=== PATIENT | female | born 1930 | race Caucasian/White ===

== ENCOUNTER → 2016-04-15 | Outpatient (CLI) | payer OTHER ==
[~2016-04-15] MED LIST: BNC20 PO
--- NOTE | 2016-04-15 09:57 | DIAGNOSTIC IMAGING REPORT ---
THYROID ULTRASOUND CLINICAL HISTORY: Thyroid nodule. COMPARISON STUDY: Thyroid ultrasound September 21, 2015. TECHNIQUE: Sonography of the thyroid gland was performed. FINDINGS: The right thyroid lobe measures 5.6 x 2 x 2.1 cm and the left lobe measures 4.7 x 1.7 x 1.4 cm. Note is made of an echogenic nodule within the lower pole of the right lobe that measures 2.5 x 1.5 x 1.7 cm. This is similar to exam of September 21, 2015 when it measured 2.6 x 1.4 x 1.8 cm. A few subcentimeter hypoechoic left lobe nodules are unchanged. The appearance of the thyroid gland is unchanged. IMPRESSION: No change in the dominant right lobe thyroid nodule since exam of September 21, 2015. Electronically signed by: Florentin Modi M.D. 04/15/2016 9:55 AM Dictated Date/Time: 04/15/2016 9:54 AM
== END | disposition home or self-care (01) ==
LOC: C.ULTR 09:21
PROVIDERS: ATTEND Internal Medicine Pulmonary Disease
DX: E04.1 Nontoxic single thyroid nodule (principal)

== ENCOUNTER → 2016-11-15 | Outpatient (CLI) | payer OTHER ==
[2016-11-15 12:27] LABS: BASO ABS # 0.06 K/uL (0-0.2); COMPLETE YES; EOS % 3.3 %; HEMATOCRIT 40.5 % (37-47); IG% 0.2 %; LYMPH % 32.3 %; LYMPH ABS # 1.85 K/uL (1.2-3.4); MEAN CELL VOLUME 88.6 fL (80-100); MEAN CORPUSCULAR HEMOGLOBIN 29.3 pg (25-34); MEAN CORPUSCULAR HGB CONC 33.1 g/dl (32-36); MONO % 9.9 %; NEUT % 53.3 %; PLATELET COUNT 347 K/uL (130-400); RED BLOOD COUNT 4.57 M/uL (4.2-5.4); WHITE BLOOD COUNT 5.73 K/uL (4.8-10.8)
[2016-11-15 12:41] LABS: URINE APPEARANCE CLEAR (CLEAR); URINE BILIRUBIN NEG (NEG); URINE COLOR YELLOW; URINE NITRITE NEG (NEG); URINE PH 7.5 (4.5-7.5); URINE SPECIFIC GRAVITY 1.012 (1.000-1.030); UROBILINOGEN NEG (NEG)
[2016-11-15 12:43] LABS: MANUAL MICROSCOPIC REQUIRED? NO; REVIEW REQ? NO
[2016-11-15 13:20] LABS: ALT/SGPT 16 U/L (12-78); AST/SGOT 19 U/L (15-37); BLOOD UREA NITROGEN 15 mg/dl (7-18); BUN/CREATININE RATIO 17.9 (10-20); CARBON DIOXIDE 28 mmol/L (21-32); CHLORIDE 103 mmol/L (98-107); CHOLESTEROL 217 mg/dl (0-200); CREATININE 0.83 mg/dl (0.60-1.20); GLUCOSE 88 mg/dl (70-99); POTASSIUM 3.8 mmol/L (3.5-5.1); SODIUM 139 mmol/L (136-145)
[2016-11-15 13:31] LABS: ALKALINE PHOSPHATASE 106 U/L (45-117); CHOLESTEROL/HDL RATIO 2.6; HDL CHOLESTEROL 84 mg/dl; LDL CHOLESTEROL CALCULATED 117 mg/dl; TRIGLYCERIDES 79 mg/dl (0-150); VERY LOW DENSITY LIPOPROT CALC 16 mg/dl
== END | disposition home or self-care (01) ==
LOC: C.LABPVFM 08:04
PROVIDERS: ATTEND Internal Medicine Pulmonary Disease
DX: E78.5 Hyperlipidemia, unspecified (principal); I10 Essential (primary) hypertension

== ENCOUNTER 2017-03-12 11:20 | Emergency (ER) | payer BC, MEDICARE, OTHER ==
[~2017-03-12] VITALS: Ht 190.5 cm; Wt 74.7 kg
[2017-03-12 11:22] VITALS: TEMP 37; Ht 190.5 cm; Wt 74.7 kg
[2017-03-12] MEDS ORDERED: SODIUM CHLORIDE 0.9% 1000ML 1,000 ML IV STA (11:49)
[2017-03-12] MEDS ORDERED: KETOROLAC TROMETHAMINE 30 MG/ML VIAL IV STA (11:49)
[2017-03-12] MEDS ORDERED: ONDANSETRON INJ 2 MG/ML 2 ML VIAL IV STA (11:49)
[2017-03-12 12:17] LABS: BASO % 0.3 %; BASO ABS # 0.03 K/uL (0-0.2); EOS % 0.7 %; EOS ABS # 0.08 K/uL (0-0.5); HEMATOCRIT 39.4 % (37-47); HEMOGLOBIN 13.3 g/dL (12.0-16.0); IG# 0.03 K/uL (0.00-0.02); LYMPH % 11.5 %; LYMPH ABS # 1.29 K/uL (1.2-3.4); MEAN CELL VOLUME 88.5 fL (80-100); MEAN CORPUSCULAR HEMOGLOBIN 29.9 pg (25-34); MEAN CORPUSCULAR HGB CONC 33.8 g/dl (32-36); MEAN PLATELET VOLUME 8.8 fL (7.4-10.4); MONO % 8.4 %; MONO ABS # 0.94 K/uL (0.11-0.59); NEUT % 78.8 %; NEUT ABS # 8.88 K/uL (1.4-6.5); PLATELET COUNT 330 K/uL (130-400); RED CELL DISTRIBUTION WIDTH CV 13.1 % (11.5-14.5); RED CELL DISTRIBUTION WIDTH SD 42.5 fL (36.4-46.3); WHITE BLOOD COUNT 11.25 K/uL (4.8-10.8)
[2017-03-12 12:25] LABS: ALBUMIN 3.6 gm/dl (3.4-5.0); CALCIUM 8.7 mg/dl (8.5-10.1); CREATININE 0.91 mg/dl (0.60-1.20); POTASSIUM 3.5 mmol/L (3.5-5.1)
[2017-03-12 12:27] LABS: TOTAL PROTEIN 7.4 gm/dl (6.4-8.2)
--- NOTE | 2017-03-12 12:27 | DIAGNOSTIC IMAGING REPORT ---
PA CHEST RADIOGRAPH AND UPRIGHT AND SUPINE AP RADIOGRAPHS OF THE ABDOMEN CLINICAL HISTORY: Abdominal pain. COMPARISON STUDY: CT of the abdomen and pelvis May 27, 2011 and chest radiograph September 02, 2014. FINDINGS: No pneumothorax or pleural effusion is noted. There is no evidence for pulmonary edema. Cardiomediastinal silhouette is stable. No consolidation is identified to suggest pneumonia. There is no free air. The bowel gas pattern is normal. There is a moderate amount of stool within the colon and rectum. Incidental note is made of mild levoscoliosis of the lumbar spine. IMPRESSION: 1. No free air or evidence of bowel obstruction. 2. Moderate amount of stool within the colon and rectum. 3. No acute cardiopulmonary findings. Electronically signed by: Florentin Modi M.D. 03/12/2017 12:25 PM Dictated Date/Time: 03/12/2017 12:20 PM
[2017-03-12 12:31] LABS: PTT PATIENT 26.6 SECONDS (21.0-31.0)
--- NOTE | 2017-03-12 14:09 | EMERGENCY ROOM VISIT NOTE ---
History Report prepared by Giovanni: Bob Mejia Under the Supervision of: Dr. Robert Lehman D.O. First contact with patient: 11:33 Chief Complaint: SYNCOPE Stated Complaint: FALL/ABDOMINAL PAIN/SYNCOPE Nursing Triage Summary: Pt arrives via BLS from her home where she had a ground level fall in the bathroom while attempting to stand up. Pt states she felt dizzy and "felt it coming on" so she "went down" on her right side. Skin tear on right elbow. Pt states she is having "barely any" pain under umbilicus rates 2/10. History of Present Illness The patient is a 86 year old female who presents to the Emergency Room with complaints of syncope that occurred just prior to arrival. The patient state that when she fell, she felt dizzy and denies head strike. She states she had an abdominal cramp that came in waves that lasted for 20 minutes, and states that pain has come back. She denies leg pain, nausea, vomiting, and diarrhea. Her last bowel movement was yesterday. Source of History: patient Onset: CRM ARCHITECT Position: other (global) Timing: other (1 episode of falling) Associated Symptoms: + LOC, + abdominal pain (intermittent waves of pain), No nausea, No vomiting, No diarrhea Review of Systems See HPI for pertinent positives & negatives. A total of 10 systems reviewed and were otherwise negative. Past Medical & Surgical Medical Problems: (1) Hypertension Family History No pertinent family history Social History Smoking Status: Never Smoker Drug Use: none Marital Status: Housing Status: lives with family Current/Historical Medications No Active Prescriptions or Reported Meds Allergies Coded Allergies: No Known Allergies (Unverified , 03/12/17) Physical Exam Vital Signs Date Time Temp Pulse Resp B/P (MAP) Pulse Ox O2 Delivery O2 Flow Rate FiO2 03/12/17 12:26 93 03/12/17 11:22 37.0 95 12 114/82 Room Air Physical Exam CONSTITUTIONAL/VITAL SIGNS: Reviewed / noted above. GENERAL: Non-toxic in appearance. INTEGUMENTARY: Warm, dry, and [place]. HEAD: Normocephalic. EYES: without scleral icterus or trauma. ENT/OROPHARYNX: clear and moist. LYMPHADENOPATHY/NECK: Is supple without lymphadenopathy or meningismus. RESPIRATORY: Lungs clear and equal. CARDIOVASCULAR: Regular rate and rhythm. GI/ABDOMEN: Soft and nontender. No organomegaly or pulsatile mass. No rebound or guarding. Normal bowel sounds. EXTREMITIES: Warm and well perfused. Contusion/abrasion of right lateral elbow. BACK: No CVA tenderness. NEUROLOGICAL: Intact without focal deficits. PSYCHIATRIC: normal affect. MUSCULOSKELETAL: Normally developed with good muscle tone. Medical Decision & Procedures ER Provider Diagnostic Interpretation: Radiology results as stated below per my review and radiologist interpretation: PA CHEST RADIOGRAPH AND UPRIGHT AND SUPINE AP RADIOGRAPHS OF THE ABDOMEN CLINICAL HISTORY: Abdominal pain. COMPARISON STUDY: CT of the abdomen and pelvis May 27, 2011 and chest radiograph September 02, 2014. FINDINGS: No pneumothorax or pleural effusion is noted. There is no evidence for pulmonary edema. Cardiomediastinal silhouette is stable. No consolidation is identified to suggest pneumonia. There is no free air. The bowel gas pattern is normal. There is a moderate amount of stool within the colon and rectum. Incidental note is made of mild levoscoliosis of the lumbar spine. IMPRESSION: 1. No free air or evidence of bowel obstruction. 2. Moderate amount of stool within the colon and rectum. 3. No acute cardiopulmonary findings. Electronically signed by: Florentin Modi M.D. 03/12/2017 12:25 PM Dictated Date/Time: 03/12/2017 12:20 PM Laboratory Results 03/12/17 11:25 Red Blood Count 4.45, Mean Corpuscular Volume 88.5, Mean Corpuscular Hemoglobin 29.9, Mean Corpuscular Hemoglobin Concent 33.8, Mean Platelet Volume 8.8, Neutrophils (%) (Auto) 78.8, Lymphocytes (%) (Auto) 11.5, Monocytes (%) (Auto) 8.4, Eosinophils (%) (Auto) 0.7, Basophils (%) (Auto) 0.3, Neutrophils # (Auto) 8.88, Lymphocytes # (Auto) 1.29, Monocytes # (Auto) 0.94, Eosinophils # (Auto) 0.08, Basophils # (Auto) 0.03 03/12/17 11:25 Test 03/12/17 11:25 03/12/17 13:30 White Blood Count 11.25 K/uL (4.8-10.8) Red Blood Count 4.45 M/uL (4.2-5.4) Hemoglobin 13.3 g/dL (12.0-16.0) Hematocrit 39.4 % (37-47) Mean Corpuscular Volume 88.5 fL (80-100) Mean Corpuscular Hemoglobin 29.9 pg (25-34) Mean Corpuscular Hemoglobin Concent 33.8 g/dl (32-36) Platelet Count 330 K/uL (130-400) Mean Platelet Volume 8.8 fL (7.4-10.4) Neutrophils (%) (Auto) 78.8 % Lymphocytes (%) (Auto) 11.5 % Monocytes (%) (Auto) 8.4 % Eosinophils (%) (Auto) 0.7 % Basophils (%) (Auto) 0.3 % Neutrophils # (Auto) 8.88 K/uL (1.4-6.5) Lymphocytes # (Auto) 1.29 K/uL (1.2-3.4) Monocytes # (Auto) 0.94 K/uL (0.11-0.59) Eosinophils # (Auto) 0.08 K/uL (0-0.5) Basophils # (Auto) 0.03 K/uL (0-0.2) RDW Standard Deviation 42.5 fL (36.4-46.3) RDW Coefficient of Variation 13.1 % (11.5-14.5) Immature Granulocyte % (Auto) 0.3 % Immature Granulocyte # (Auto) 0.03 K/uL (0.00-0.02) Prothrombin Time 10.6 SECONDS (9.0-12.0) Prothromb Time International Ratio 1.0 (0.9-1.1) Activated Partial Thromboplast Time 26.6 SECONDS (21.0-31.0) Partial Thromboplastin Ratio 1.0 Anion Gap 8.0 mmol/L (3-11) Est Creatinine Clear Calc Drug Dose 54.3 ml/min Estimated GFR () 67.1 Estimated GFR (Non- 57.9 BUN/Creatinine Ratio 17.0 (10-20) Calcium Level 8.7 mg/dl (8.5-10.1) Total Bilirubin 0.6 mg/dl (0.2-1) Direct Bilirubin 0.1 mg/dl (0-0.2) Aspartate Amino Transf (AST/SGOT) 33 U/L (15-37) Alanine Aminotransferase (ALT/SGPT) 23 U/L (12-78) Alkaline Phosphatase 107 U/L (45-117) Total Protein 7.4 gm/dl (6.4-8.2) Albumin 3.6 gm/dl (3.4-5.0) Lipase 257 U/L (73-393) Urine Color YELLOW Urine Appearance CLEAR (CLEAR) Urine pH 7.0 (4.5-7.5) Urine Specific [place] 1.008 (1.000-1.030) Urine Protein NEG (NEG) Urine Glucose (UA) NEG (NEG) Urine Ketones NEG (NEG) Urine Occult Blood NEG (NEG) Urine Nitrite NEG (NEG) Urine Bilirubin NEG (NEG) Urine Urobilinogen NEG (NEG) Urine Leukocyte Esterase NEG (NEG) Urine WBC (Auto) 1-5 /hpf (0-5) Urine RBC (Auto) 0-4 /hpf (0-4) Urine Hyaline Casts (Auto) 0 /lpf (0-5) Urine Epithelial Cells (Auto) 20-30 /lpf (0-5) Urine Bacteria (Auto) NEG (NEG) Laboratory results as stated above per my review. Medications Administered Medications (Trade) Dose Ordered Sig/Radu Route Start Time Stop Time Status Last Admin Dose Admin Sodium Chloride 1,000 ml @ 999 mls/hr Q1H1M STAT IV 03/12/17 11:49 03/12/17 12:49 DC 03/12/17 11:49 999 MLS/HR ECG Indication: abdominal pain, syncope Rate (beats per minute): 95 Rhythm: normal sinus Findings: 1st degree AV block, no ectopy, other (No acute injury) Change: Patient's EKG interpreted by me. ED Course 1133: Previous medical records were reviewed. The patient was evaluated in room A3. A complete history and physical examination was performed. 1149: Toradol Inj 30 mg IV, Zofran Inj 4 mg IV, Sodium Chloride 1000 ml @ 999 mls/hr IV. 1409: On reevaluation, the patient is doing well. I discussed the results and findings with the patient. She verbalized agreement of the treatment plan. She was discharged home. Medical Decision Differential includes acute cardiac dysrhythmia, microinfarction, CVA, TIA, dehydration, anemia, electrolyte disturbance, seizure, trauma, intracranial bleeding, acute vascular catastrophe, thoracic aortic dissection, PE, abdominal aortic aneurysm rupture, ectopic rupture. Differential considered: pancreatitis, hepatitis, or acute cholecystitis, AAA, UTI, pyelonephritis, kidney stones, appendicitis, diverticulitis, shingles, bowel obstruction mesenteric ischemia, intussusception,hernia. This is a 86-year-old female who presents to the ED with a chief complaint of syncopal episode. The patient states that she had a severe cramp in her abdomen. This caused her to feel lightheaded and nearly passed out and she states that she went down to the ground and hit her right elbow on the wall. This caused a contusion/abrasion. She denies striking her head. She denies any additional trauma. The patient states that the symptoms resolved after short period time. She was brought here for evaluation. The patient on initial evaluation did not have any symptoms but this pain started returning when she was being evaluated. The patient states she felt like she had to move her bowels. The patient had no tenderness on abdominal exam. She otherwise appears well. Her exam was normal. Acute abdominal series revealed moderate stool in the colon and rectum. CBC, complete metabolic panel and urine did not show any significant abnormalities. The patient was told results of the test per she was treated with some IV Zofran, IV Toradol and IV fentanyl. She was felt to be stable for discharge and outpatient follow-up. Of note, she did have a bowel movement during her stay. She states that she felt better. Medication Reconcilliation Current Medication List: was personally reviewed by me Blood Pressure Screening Patient's blood pressure: Normal blood pressure Blood pressure disposition: Did not require urgent referral Impression Primary Impression: Constipation Additional Impression: Syncope Scribe Attestation The scribe's documentation has been prepared under my direction and personally reviewed by me in its entirety. I confirm that the note above accurately reflects all work, treatment, procedures, and medical decision making performed by me. Departure Information Dispostion Home / Self-Care Prescriptions No Active Prescriptions or Reported Meds Referrals Jorge Interiano M.D. (PCP) Patient Instructions Constipation, My [facility] Additional Instructions Follow-up with your doctor for further care and evaluation in 1-2 days. Return to the emergency department for worsening or new symptoms or any concerns. You have been examined and treated today on an emergency basis only. This is not a substitute for, or an effort to provide, complete comprehensive medical care. It is impossible to recognize and treat all injuries or illnesses in a single emergency department visit. It is therefore important that you follow up closely with your doctor. Call as soon as possible for an appointment. Problem Qualifiers
[2017-03-12 14:23] VITALS: BP 144/80; PULSE 68; O2SAT 98
== END 2017-03-12 14:25 | disposition home or self-care (01) ==
LOC: EDBD 11:20 → C.EDA 11:22
DX: R55 Syncope and collapse (principal); K59.00 Constipation, unspecified; I10 Essential (primary) hypertension; S50.01XA Contusion of right elbow, initial encounter; W19.XXXA Unspecified fall, initial encounter

== ENCOUNTER 2018-04-27 08:33 | Inpatient (IN) ==
--- NOTE | 2018-04-12 18:00 | PAT Medication Instructions ---
Medication Instructions Date of Service April 13, 2018 Home Medications diclofenac sodium 50 mg PO . NOON ASK your surgeon for instructions diclofenac sodium 50 mg PO . NOON Take morning of surgery NOTHING TO EAT OR DRINK AFTER MIDNIGHT Other Notes If you have any questions please call us at [phone] or [phone] or [phone] or [phone]
--- NOTE | 2018-04-13 08:59 | Anesthesiology Consultation ---
Date of Service April 13, 2018 Assessment & Plan (1) Encounter for pre-operative examination: Chart Review Chart Review: Acceptable Risk for Surgery and Patient seen in Pre Admission Testing Consults Requested none Teaching & Discussion Pre-Anesthesia Teaching/Discussion Notes: Instructed NPO after midnight before surgery, except medications with 15 cc of water. Medication instructions provided according to the PAT guidelines. History Surgery Operation Date: 04/27/18 13:35 Proposed Procedures p Right Anterior Total Hip Arthroplasty - Evan Ha DO Height/Weight Height: 6 ft 4 in Weight: 69.9 kg Allergies Allergy/AdvReac Type Severity Reaction Status Date / Time No Known Allergies Allergy Mild Unverified 04/11/18 09:48 Medications Home Medications Medication Instructions Recorded Confirmed Last Taken diclofenac sodium 50 mg PO . NOON 04/11/18 04/11/18 Unknown Past Medical History Medical History Hypertension (Chronic) Osteoarthritis Past Surgical History Surgical History History of appendectomy History of colonoscopy Past Anesthesia History No Hx of Anesthesia Complications and No Family Hx of Anesthesia Complications History of PONV No Motion Sickness Screening History of Motion Sickness: No (In childhood) Social History Smoking Status: Never smoker Do You Dip or Chew Tobacco: No Hx Alcohol Use: Yes Alcohol type: wine alcohol intake frequency: holidays/special occasions only Hx Substance Use: No substance use type: does not use Exercise / Class Metabolic Activity II 4-5 Yardwork/Stairs/Walk up hill (Currently limited due to hip pain. Does still walk daily, swims, gardens. Able to climb FOS. Denies CP or SOB. ) Review of Systems Patient denies chest pain, shortness of breath, dyspnea on exertion, reflux, cough, wheezing, palpitations. +joint pain (hips, shoulders, knees) Physical Exam Vital Signs BP: 160/90 (patient anxious because of drive in bad weather and nervous about appointment.) P: 83 R: 16 T: 97 SPO2: 97% on RA ENMT Mouth: + poor dentition Thyromental Distance: > or= 3.5 Finger Breadths (3.5) Mallampati Class: II Lower partial Neck normal visual inspection and trachea midline Respiratory normal respiratory effort Auscultation: lungs clear to auscultation bilaterally Cardiovascular Rate/Rhythm: regular rate and regular rhythm Heart Sounds: no murmur Vessels: no carotid bruit Neurologic moves all extremities Psychiatric Orientation: alert and oriented x 3 Testing Electrocardiogram Date: 04/13/18 Findings: + NSR @ (80) Compared with ECG of 03/12/17, nonspecific T wave abnormality is no longer evident in anterior leads. Chest X-Ray Date: 04/13/18 FINDINGS: The heart is normal in size. There is stable aortic tortuosity. There is suspected underlying emphysema. There is no focal pulmonary consolidation. There is minor blunting of the left lateral costophrenic angle. IMPRESSION: 1. Pulmonary emphysema 2. No evidence of acute parenchymal consolidation 3. No evidence of failure 4. Minimal blunting of the left lateral costophrenic angle. Laboratory Results 04/13/18 09:21 04/13/18 09:21 Blood Type O Positive 04/13/18 09:21 Antibody Screen NEGATIVE 04/13/18 09:21 PT 10.6 Seconds (9.0-12.0) 04/13/18 09:21 INR 1.0 (0.9-1.1) 04/13/18 09:21 APTT 27.3 Seconds (21.0-31.0) 04/13/18 09:21
[2018-04-13 09:54] LABS: Basophils # (auto) 0.03 K/uL (0-0.2); Basophils % (auto) 0.5 %; Eosinophils # (auto) 0.18 K/uL (0-0.5); Eosinophils % (auto) 2.8 %; Hematocrit (blood only) 37.9 % (37-47); Hemoglobin 12.8 g/dL (12.0-16.0); Immature Granulocytes # (auto) 0.02 K/uL (0.00-0.02); Immature Granulocytes % (auto) 0.3 %; Lymphocytes # (auto) 1.91 K/uL (1.2-3.4); Lymphocytes % (auto) 29.5 %; Mean Corpuscular Hgb Conc 33.8 g/dL (32-36); Mean Corpuscular Volume 89.4 fL (80-100); Mean Platelet Volume 8.6 fL (7.4-10.4); Monocytes # (auto) 0.65 K/uL (0.11-0.59); Neutrophils # (auto) 3.68 K/uL (1.4-6.5); Neutrophils % (auto) 56.9 %; Platelet Count 308 K/uL (130-400); RDW Coefficient of Variation 13.4 % (11.5-14.5); RDW Standard Deviation 43.8 fL (36.4-46.3); Red Blood Count 4.24 M/uL (4.2-5.4); White Blood Count 6.47 K/uL (4.8-10.8)
--- NOTE | 2018-04-13 09:57 | XRay Report ---
XR chest Pre-admission PA/Lat CLINICAL HISTORY: Preoperative chest COMPARISON STUDY: 03/04/2017 FINDINGS: The heart is normal in size. There is stable aortic tortuosity. There is suspected underlyi ng emphysema. There is no focal pulmonary consolidation. There is minor blunting of the left lateral costophrenic angle.[ IMPRESSION: 1. Pulmonary emphysema 2. No evidence of acute parenchymal consolidation 3. No evidence of failure 4. Minimal blunting of the left lateral costophrenic angle Electronically signed by: Dante Wright M.D. 04/13/2018 9:56 AM
[2018-04-13 09:59] LABS: BUN Creatinine Ratio 23.6 (10-20); Calcium 9.2 mg/dl (8.5-10.1); Creatinine Clr Calc Pharmacy 52.2 ml/min; Est GFR (African American) 70.4; Est GFR (Non-African American) 60.7; Potassium 3.5 mmol/L (3.5-5.1)
[2018-04-13 10:03] LABS: Partial Thromboplastin Time 27.3 Seconds (21.0-31.0); Prothrombin Time 10.6 Seconds (9.0-12.0)
--- NOTE | 2018-04-26 20:21 | History & Physical Report ---
Date of Service April 26, 2018 Assessment & Plan (1) Osteoarthritis of right hip: We will proceed with a right anterior total hip arthroplasty. Postoperatively she will be placed on aspirin for DVT prophylaxis. She will be kept overnight for postoperative medical management. She plans to use energy physical therapy upon discharge. Present on Admission?: Yes History of Present Illness Chief Complaint: Primary osteoarthritis of the right hip Primary Care Provider: Jorge Interiano MD Marika is a pleasant 87-year-old female who is been dealing with chronic increasing right hip and groin pain. X-rays and clinical examination have been diagnostic for primary osteoarthritis of the right hip. After failing extensive conservative treatment she is elected proceed with a right total hip arthroplasty. We had extensive discussions in the office regarding her age but she is very active and she feels like her hip pain is significantly affecting her quality of life. Allergies Allergy/AdvReac Type Severity Reaction Status Date / Time No Known Allergies Allergy Mild Unverified 04/11/18 09:48 Home Medications Home Medications Medication Instructions Recorded Confirmed Type diclofenac sodium 50 mg PO . 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 Beliefs That Will Affect Care: None Current Living Situation: Spouse Other Information That Helps Us Care for You: No Feels Safe at Home: Yes Safety Concerns: Feels Safe At This Time Smoking Status: Never smoker Hx Alcohol Use: Yes Hx Substance Use: No Review of Systems All systems reviewed & are unremarkable except as noted in HPI & below Physical Exam Constitutional: WD/WN, vitals as above Eyes: PERRL, conjunctivae normal, anicteric sclerae ENMT: external ear and nose normal, oropharynx normal Neck: trachea midline, no thyromegaly Respiratory: normal respiratory effort Cardiovascular: RRR, no murmur, no edema Gastrointestinal (Abdomen): normal bowel sounds, soft, nontender, no hepatosplenomegaly Musculoskeletal: Physical examination of the right hip reveals decreased range of motion with flexion, internal and external rotation. There is significant groin pain with forced internal rotation of the hip his leg lengths are essentially equal. Psychiatric: A+Ox3, euthymic affect Results & Data Diagnostic Findings Radiographs of the right hip and pelvis demonstrate advanced osteoarthritis with joint space narrowing osteophyte formation and [id number] articulation.
[~2018-04-27 08:33] MED LIST changes: +ACETAMINOPHEN 500 MG TAB PO SCH; -BNC20 PO; +BUPIVACAINE 0.5 % 5 MG/1 ML PF 10ML VIAL ONE; +CEFAZOLIN 2000MG 2,000 MG/15 ML SYR IV SCH; +FAMOTIDINE 20 MG TAB PO SCH; +GABAPENTIN 300 MG PO SCH; +LR 15ML/HR IV SCH; +LR 60ML/HR IV SCH; +ROPIVACAINE 0.5% HCL/PF 150 MG, BUPIVACAINE 0.5% MPF 30 ML, EPINEPHrine 30MG/30ML (OR U... INFIL SCH; +TRANEXAMIC ACID 1,000 MG **IV Intra-op IV SCH; +TRANEXAMIC ACID 1,000 MG **IV Pre-op IV SCH
--- NOTE | 2018-04-27 08:37 | History & Physical Bridge Note ---
Date of Service April 27, 2018 History & Physical Bridge Note I have examined the patient, reviewed the History & Physical and in the interval since the performance of the History & Physical I have noted the following changes of clinical significance: no changes noted
[2018-04-27] MEDS ORDERED: KETAMINE HCL INJ 50 MG/ML 10 ML VIAL ONE (08:43)
[2018-04-27] MEDS ORDERED: MIDAZOLAM HCL 1 MG/ML 2ML VIAL ONE (08:43)
[2018-04-27] MEDS ORDERED: POVIDONE-IODINE OP SOLN 30 ML BTL ONE (08:52)
[2018-04-27] MEDS ORDERED: ORTHO JOINT ANESTHETIC ONE (08:52)
[2018-04-27] MEDS ORDERED: fentaNYL citrate 100 MCG/2 ML VIAL IV PRN (09:45)
[2018-04-27] MEDS ORDERED: ONDANSETRON INJ 2 MG/ML 2 ML VIAL IV PRN ×2 (09:45→13:53)
[2018-04-27] MEDS ORDERED: ePHEDrine sulfate 50 MG/ML AMP IV PRN (09:45)
[2018-04-27] MEDS ORDERED: ATROPINE SULFATE 0.1 MG/ML 10ML SYR IV PRN (09:45)
[2018-04-27] MEDS ORDERED: PHENYLEPHRINE 100MCG/ML 5ML SYR IV PRN (09:45)
[2018-04-27] MEDS ORDERED: DEXAMETHASONE SOD INJ 4 MG/ML VIAL ONE (10:38)
[2018-04-27] MEDS ORDERED: LIDOCAINE HCL 2% 2 ML VIAL/AMP(20MG/ML) INFIL ONE (10:38)
[2018-04-27] MEDS ORDERED: GLYCOPYRROLATE 0.2 MG/ML VIAL ONE (10:38)
[2018-04-27] MEDS ORDERED: ONDANSETRON INJ 2 MG/ML 2 ML VIAL ONE (10:38)
[2018-04-27] MEDS ORDERED: PROPOFOL IV EMULSION 10 MG/ML 20 ML VIAL IV ONE (10:38)
--- NOTE | 2018-04-27 11:56 | Operative Report ---
Post Operative Report Pre & Post Diagnosis Operation Date: 04/27/18 10:00 Pre-Op Diagnosis: Right Hip Degenerative Joint Disease Post-Op Diagnosis: Right Hip Degenerative Joint Disease Procedure Operation Date: 04/27/18 10:00 Actual Procedures p Right Anterior Total Hip Arthroplasty(Right) - Evan Ha DO Surgeon Evan Ha DO Fire Extinguisher Inspector Evan Chacon PAC Estimated Blood Loss 200 Findings Consistent with Post-Op Diagnosis Specimens Right femoral head Complications none Disposition Disposition: Recovery Room Indications Patient is a pleasant 87-year-old female who is been dealing with chronic increasing right hip pain. X-rays and clinical examination were diagnostic for advanced osteoarthritis of the right hip. After failing conservative treatment, she elected to proceed with a right anterior total hip arthroplasty. We did have extensive discussion regarding her age, however her hip pain is significantly affecting her quality of life and she would like to proceed. Description of Procedure Implants used Biomet Taperloc total hip arthroplasty system with a size 15 standard offset Taperloc stem, a 56 mm G7 cup with a 25mm screw, an E1 polyethylene liner, a 40 mm ceramic head with a 0 neck. Patient arrived at the hospital for the above procedure. They were seen in the preoperative holding area and the operative extremity was identified and signed. They were given a spinal anesthetic. They were given a preoperative antibiotic and TXA. They were taken back To the operating room and laid on the table in the supine position. The leg was brought out through a Puristst leg positioner. The hip was then prepped and draped in sterile fashion. A timeout was done and the patient in upper extremities properly identified. An anterior approach was used. Dissection was taken down through the fascia and the tensor muscle belly was retracted laterally and the rectus was retracted medially. The circumflex vessels were identified and ligated. The capsule was then incised and tagged for later repair. The femoral neck was then cut and the femoral head was removed. The acetabulum was exposed. Time was spent doing a complete circumferential labral release. Sequential reaming of the acetabulum up to a size 55 reamer was done. Final reamings were done under fluoroscopy to ensure appropriate version. A Biomet 56 mm G7 cup was then impacted into place. A single 25 mm screw was placed. The E1 polyethylene liner was then snapped into place. Surrounding soft tissues were then injected with 100 cc of an orthopedic pain control cocktail. The proximal femur was then exposed. Sequential broaching up to a size 15 broach was done. Off that broach a size 40 head with a 0 neck was trialed. The hip was reduced and fluoroscopic images showed anatomic alignment of the implants in acceptable length. The broach was removed. The final size 15 standard offset Taperloc stem was then impacted into place. A ceramic 40 mm head with a 0 neck was then impacted into place in the hip was reduced. Final fluoroscopic images showed anatomic reduction of the hip. The capsule was then closed with #1 Vicryl suture. A dilute betadyne lavage was then done for 3 minutes. The joint was then irrigated with normal saline solution. The fascia was closed with #1 PDS suture. Skin was closed with 2-0 Vicryl, steve, and a Miryam VAC dressing. The patient was then transferred to a hospital bed and taken to the post anesthesia care unit in stable condition. They tolerated the procedure well. I attest to the content of the Intraoperative Record and any orders documented therein. Any exceptions are noted below.
--- NOTE | 2018-04-27 12:37 | Fluoroscopy Report ---
FL hip RT 1V CLINICAL HISTORY: RT ANTERIOR HIP COMPARISON STUDY: None. FLUOROSCOPY TIME: 28 seconds. FINDINGS: 2 fluoroscopic spot images of the right hip demonstrated right total arthroplasty. The hard schulz is intact. No fracture or dislocation. IMPRESSION: Fluoroscopy provided for right total arthroplasty. Electronically signed by: Cruz Payne M.D. 04/27/2018 12:35 PM
--- NOTE | 2018-04-27 13:01 | Anesthesiology Progress Note ---
Date of Service April 27, 2018 Anesthesia Post Procedure Vital Signs Vital Signs: Temp Pulse Pulse Resp BP Pulse Ox 04/27/18 13:00 36.1 C L 72 15 139/86 99 04/27/18 12:50 82 18 137/85 92 04/27/18 12:40 85 15 130/86 98 04/27/18 12:30 89 18 142/85 H 98 04/27/18 12:23 36.4 C L 103 H 19 134/87 93 04/27/18 09:15 36.7 C 99 H 18 170/98 H 96 Pain Intensity Right Hip: Pain Intensity: 7 Notes Mental Status: alert / awake / arousable Patient Amnestic to Procedure: Yes Nausea / Vomiting: adequately controlled Pain: adequately controlled Airway Patency, RR, SpO2: stable & adequate BP & HR: stable & adequate Neuraxial Anesthesia: was administered and sensory block is resolving Anesthetic Complications: no major complications apparent
--- NOTE | 2018-04-27 13:32 | XRay Report ---
SINGLE VIEW PELVIS; SINGLE VIEW RIGHT HIP CLINICAL HISTORY: Postoperative examination. FINDINGS: An AP portable view of the hips and pelvis with a crosstable lateral portable view of the r ight hip are obtained. A bipolar right hip arthroplasty is in near-anatomic alignment. A single corti vince lag screw transfixes the acetabular cup. No acute fracture is identified. There are expected post operative changes overlying the right hip including skin clips, subcutaneous gas, a surgical drain, a nd soft tissue swelling. IMPRESSION: Expected postoperative findings status post right hip arthroplasty. No acute fracture is seen. Electronically signed by: Giles Dooley M.D. 04/27/2018 1:31 PM
[2018-04-27] MEDS ORDERED: NALOXONE HCL 0.4 MG/1 ML VIAL/CARP IV PRN (13:53)
[2018-04-27] MEDS ORDERED: MAGNESIUM HYDROXIDE SUSP 30 ML UDC PO PRN (13:53)
[2018-04-27] MEDS ORDERED: BISACODYL 10 MG SUPP PR PRN (13:53)
[2018-04-27] MEDS ORDERED: METOCLOPRAMIDE HCL INJ 5 MG/ML 2 ML VIAL IV PRN (13:53)
[2018-04-27] MEDS ORDERED: HYDROmorphone INJ 0.5 MG/0.5 ML SYR IV PRN (13:53)
[2018-04-27] MEDS ORDERED: SODIUM CHLORIDE 0.9% 1000ML 1,000 ML IV SCH (15:00)
[2018-04-27] MEDS: ACETAMINOPHEN 500 MG TAB PO SCH ×2 (15:13→22:23)
[2018-04-27] MEDS: CEFAZOLIN 1000MG 1,000 MG/7.5 ML SYR IV SCH (17:27)
[2018-04-27] MEDS: KETOROLAC TROMETHAMINE 15 MG/ML VIAL IV SCH ×2 (17:27→23:27)
[2018-04-27] MEDS: OXYCODONE HCL IR 5 MG TAB (IMMEDIATE RELEASE) PO PRN (19:22)
[2018-04-27] MEDS: DOCUSATE SODIUM 100 MG CAP PO SCH (19:23)
[2018-04-27] MEDS: SENNA 8.6 MG TAB PO SCH (19:23)
[2018-04-27] MEDS: ASPIRIN 81 MG ECTAB PO SCH (19:24)
[2018-04-28] MEDS: CEFAZOLIN 1000MG 1,000 MG/7.5 ML SYR IV SCH (01:22)
[2018-04-28 06:21] LABS: Basophils # (auto) 0.01 K/uL (0-0.2); Basophils % (auto) 0.1 %; Eosinophils # (auto) 0.01 K/uL (0-0.5); Eosinophils % (auto) 0.1 %; Hematocrit (blood only) 32.6 % (37-47); Hemoglobin 11.3 g/dL (12.0-16.0); Immature Granulocytes # (auto) 0.06 K/uL (0.00-0.02); Immature Granulocytes % (auto) 0.4 %; Lymphocytes # (auto) 1.41 K/uL (1.2-3.4); Lymphocytes % (auto) 8.4 %; Mean Corpuscular Hgb Conc 34.7 g/dL (32-36); Mean Corpuscular Volume 89.3 fL (80-100); Mean Platelet Volume 8.6 fL (7.4-10.4); Monocytes # (auto) 1.76 K/uL (0.11-0.59); Monocytes % (auto) 10.4 %; Neutrophils # (auto) 13.62 K/uL (1.4-6.5); Neutrophils % (auto) 80.6 %; Platelet Count 292 K/uL (130-400); RDW Coefficient of Variation 13.6 % (11.5-14.5); RDW Standard Deviation 44.4 fL (36.4-46.3); Red Blood Count 3.65 M/uL (4.2-5.4); White Blood Count 16.87 K/uL (4.8-10.8)
[2018-04-28] MEDS: ACETAMINOPHEN 500 MG TAB PO SCH ×3 (06:28→22:36)
[2018-04-28] MEDS: KETOROLAC TROMETHAMINE 15 MG/ML VIAL IV SCH ×4 (06:28→23:55)
--- NOTE | 2018-04-28 06:33 | Orthopedic Progress Note ---
Date of Service April 28, 2018 Assessment & Plan (1) Osteoarthritis of right hip: Overall she is doing very well. She is not having much pain in the hip. She is already been ambulating to the bathroom. She will be seen by physical therapy today for further ambulation exercises. We will continue oxycodone for pain control and aspirin for DVT prophylaxis. I plan to discharge her to home tomorrow morning. Present on Admission?: Yes Subjective Patient was seen and examined at bedside this morning. Overall she is doing very well. She is not having much pain in the hip. She is been up and amb ulating to the bathroom without much difficulty. She is happy with her progress. She has no complaints. Physical Exam Vital Signs (Past 24 Hours): Last Vital Signs Temp 36.7 C 04/28/18 03:01 Pulse 81 04/28/18 03:01 Resp 16 04/28/18 03:01 BP 122/60 04/28/18 03:01 Pulse Ox 98 04/28/18 03:01 Musculoskeletal: On physical examination of the right hip, the Mriyam VAC dressing is to suction. Her leg lengths are equal. She is active dorsiflexion and plantarflexion of her right ankle. Sensation is intact throughout. Results & Data Laboratory Results H & H 04/13/18 04/28/18 Range/Units 09:21 05:46 Hgb 12.8 11.3 L (12.0-16.0) g/dL Hct 37.9 32.6 L (37-47) % Coagulation 04/13/18 Range/Units 09:21 INR 1.0 (0.9-1.1) Diagnostic Findings Postoperative x-rays of the right hip show the prosthesis to be in anatomic alignment without any evidence of fracture, dislocation, or loosening.
[2018-04-28 06:56] LABS: BUN Creatinine Ratio 22.3 (10-20); Calcium 8.2 mg/dl (8.5-10.1); Creatinine Clr Calc Pharmacy 43.9 ml/min; Est GFR (African American) 57.4; Est GFR (Non-African American) 49.5; Potassium 3.6 mmol/L (3.5-5.1)
--- NOTE | 2018-04-28 08:33 | Anesthesiology Progress Note ---
Date of Service April 28, 2018 Anesthesia Post Procedure Vital Signs Vital Signs: Temp Pulse Pulse Resp BP Pulse Ox 04/28/18 07:00 36.8 C 75 16 123/61 97 04/28/18 03:01 36.7 C 81 16 122/60 98 04/27/18 23:14 36.3 C L 75 14 123/68 97 04/27/18 23:13 36.3 C L 04/27/18 19:53 36.6 C 76 22 123/74 97 04/27/18 16:14 36.6 C 80 20 143/82 H 98 04/27/18 15:09 36.7 C 79 20 143/86 H 97 04/27/18 14:11 36.3 C L 75 18 156/85 H 96 04/27/18 13:45 36.4 C L 88 18 152/68 H 92 04/27/18 13:15 90 19 147/82 H 147 H 04/27/18 13:00 36.1 C L 72 15 139/86 99 04/27/18 12:50 82 18 137/85 92 04/27/18 12:40 85 15 130/86 98 04/27/18 12:30 89 18 142/85 H 98 04/27/18 12:23 36.4 C L 103 H 19 134/87 93 04/27/18 09:15 36.7 C 99 H 18 170/98 H 96 Pain Intensity Right Hip: Pain Intensity: 3 Notes Mental Status: alert / awake / arousable Patient Amnestic to Procedure: Yes Nausea / Vomiting: adequately controlled Pain: adequately controlled Airway Patency, RR, SpO2: stable & adequate BP & HR: stable & adequate Neuraxial Anesthesia: was administered and sensory block is resolving Anesthetic Complications: no major complications apparent Notes: POD #1 s/p R CHRIS. Doing well, no complaints. VSS.
[2018-04-28] MEDS: DOCUSATE SODIUM 100 MG CAP PO SCH ×2 (09:13→20:26)
[2018-04-28] MEDS: MULTIVITAMIN TAB PO SCH (09:13)
[2018-04-28] MEDS: ASPIRIN 81 MG ECTAB PO SCH ×2 (09:13→20:26)
[2018-04-28] MEDS: SENNA 8.6 MG TAB PO SCH (20:27)
[2018-04-28] MEDS: OXYCODONE HCL IR 5 MG TAB (IMMEDIATE RELEASE) PO PRN (22:36)
[2018-04-29] MEDS: ACETAMINOPHEN 500 MG TAB PO SCH (06:08)
[2018-04-29] MEDS: KETOROLAC TROMETHAMINE 15 MG/ML VIAL IV SCH (06:08)
[2018-04-29] MEDS: ASPIRIN 81 MG ECTAB PO SCH (07:20)
[2018-04-29] MEDS: DOCUSATE SODIUM 100 MG CAP PO SCH (07:20)
[2018-04-29] MEDS: MULTIVITAMIN TAB PO SCH (07:20)
--- NOTE | 2018-04-29 08:49 | Orthopedic Progress Note ---
Date of Service April 29, 2018 Assessment & Plan (1) Osteoarthritis of right hip: Overall she is doing very well. She is not having much pain in the right hip. She is ambulate well with physical therapy. She can be discharged home later this morning. She is on aspirin for DVT prophylaxis. She will follow-up with orthopedics in 2 weeks. Present on Admission?: Yes Subjective Patient was seen and examined at bedside this morning. She just finished with physical therapy. She is doing extremely well. She was able to easily ambulate around the nursing station. She had some pain this morning in her hip but is already better. She has no complaints. Physical Exam Vital Signs (Past 24 Hours): Last Vital Signs Temp 36.9 C 04/29/18 06:15 Pulse 81 04/29/18 06:15 Resp 16 04/29/18 06:15 BP 139/76 04/29/18 06:15 Pulse Ox 97 04/29/18 06:15 Musculoskeletal: On physical examination of the right hip, the Miryam VAC dressing is to suction. Her leg lengths are equal. She is active dorsiflexion and plantarflexion of her right ankle.
--- NOTE | 2018-04-30 09:18 | Discharge Summary ---
Date of Service May 02, 2018 Admission HPI Per Admitting Provider Marika is a pleasant 87-year-old female who is been dealing with chronic increasing right hip and groin pain. X-rays and clinical examination have been diagnostic for primary osteoarthritis of the right hip. After failing extensive conservative treatment she is elected proceed with a right total hip arthroplasty. We had extensive discussions in the office regarding her age but she is very active and she feels like her hip pain is significantly affecting her quality of life. Discharge Data Consultations 04/28/18 08:00 Consult Case Management - Discharge Planning Routine Procedures Performed Operation Date: 04/27/18 10:00 Actual Procedures p Right Anterior Total Hip Arthroplasty(Right) - Evan Ha DO
--- NOTE | 2018-05-01 07:37 | Discharge Summary ---
Date of Service May 01, 2018 Admission HPI Per Admitting Provider Marika is a pleasant 87-year-old female who is been dealing with chronic increasing right hip and groin pain. X-rays and clinical examination have been diagnostic for primary osteoarthritis of the right hip. After failing extensive conservative treatment she is elected proceed with a right total hip arthroplasty. We had extensive discussions in the office regarding her age but she is very active and she feels like her hip pain is significantly affecting her quality of life. Specialty Data Orthopedic H & H 04/13/18 04/28/18 Range/Units 09:21 05:46 Hgb 12.8 11.3 L (12.0-16.0) g/dL Hct 37.9 32.6 L (37-47) % Coagulation 04/13/18 Range/Units 09:21 INR 1.0 (0.9-1.1) Discharge Data Consultations 04/28/18 08:00 Consult Case Management - Discharge Planning Routine Procedures Performed Operation Date: 04/27/18 10:00 Actual Procedures p Right Anterior Total Hip Arthroplasty(Right) - Evan Ha DO Hospital Course (1) Osteoarthritis of right hip: On April 27, 2018 the patient arrived at [facility] and underwent a right anterior total hip arthroplasty without complication. She had a spinal anesthetic. Postoperatively she was started on aspirin for DVT prophylaxis and discharged to general orthopedic floors. Her hospital course was uneventful. On postop day #1 her H&H was stable and her pain was well controlled. She was able to ambulate fairly well with physical therapy. We d ecided to keep her for an extra day just to make sure she was stable before returning home with her . On postop day #2 she was doing very well. I talked personally with the therapist and he felt she was ready for discharge to home. She was then discharged to home with oral pain medications and aspirin for DVT prophylaxis. She will get home physical therapy. She will follow-up with orthopedics in 2 weeks. Discharge Instructions Home Medications Medication Instructions Recorded Confirmed diclofenac sodium 50 mg PO . NOON 04/11/18 04/29/18 PreserVision AREDS-2 1 cap PO DAILY 04/27/18 04/29/18 acetaminophen 2 tab PO TID PRN 04/27/18 04/29/18 Previous Rx's Medication Instructions Recorded aspirin [Ecotrin Low Strength] 81 mg PO BID #84 tab 04/28/18 oxycodone 5 - 10 mg PO Q4H PRN #40 tab 04/28/18
== END 2018-04-29 11:00 | disposition home or self-care (01) | DRG 470 ==
LOC: ASU 08:33 → 3E 11:58

== ENCOUNTER 2018-04-29 20:55 | Observation (INO) ==
[2018-04-29 21:30] LABS: Basophils # (auto) 0.04 K/uL (0-0.2); Basophils % (auto) 0.3 %; Eosinophils # (auto) 0.11 K/uL (0-0.5); Eosinophils % (auto) 0.9 %; Hemoglobin 11.4 g/dL (12.0-16.0); Immature Granulocytes # (auto) 0.08 K/uL (0.00-0.02); Immature Granulocytes % (auto) 0.7 %; Lymphocytes # (auto) 1.22 K/uL (1.2-3.4); Lymphocytes % (auto) 10.1 %; Mean Corpuscular Hgb Conc 33.5 g/dL (32-36); Mean Corpuscular Volume 89.7 fL (80-100); Mean Platelet Volume 9.1 fL (7.4-10.4); Monocytes # (auto) 1.15 K/uL (0.11-0.59); Monocytes % (auto) 9.6 %; Neutrophils # (auto) 9.44 K/uL (1.4-6.5); Neutrophils % (auto) 78.4 %; Platelet Count 282 K/uL (130-400); RDW Coefficient of Variation 13.8 % (11.5-14.5); RDW Standard Deviation 45.2 fL (36.4-46.3); Red Blood Count 3.79 M/uL (4.2-5.4); White Blood Count 12.04 K/uL (4.8-10.8)
--- NOTE | 2018-04-29 21:35 | XRay Report ---
XR chest 1V portable CLINICAL HISTORY: syncope COMPARISON STUDY: 04/13/2018 FINDINGS: The heart is mildly enlarged. There is aortic tortuosity. There is suspected underlying emp hysema. There is no focal pulmonary consolidation. There are no pleural effusions.[ There is no failu re. Advanced arthritic changes involve the shoulders. IMPRESSION: No active disease in the chest. Electronically signed by: Dante Wright M.D. 04/29/2018 9:34 PM
--- NOTE | 2018-04-29 22:05 | Emergency Department Note ---
Entered by Eric Kay acting as a scribe for History of Present Illness General Chief complaint: Syncope Stated complaint: SYNCOPE Time Seen by Provider: 04/29/18 20:57 Source: patient Limitations: no limitations History of Present Illness Provider complaint: Syncope Onset (ago): hour(s) (1.5 hours ago) Location: head Pain Consistency: + now resolved and + other (single episode) Quality: + other (syncope) Associated symptoms: + shortness of breath and + other (right hip pain); no chest pain Treatments prior to arrival: other (oxycodone, 200 mL FLUID. ) The patient is an 87 year old female who presents to the Emergency Room following a syncopal episode that occurred about 1.5 hours ago. EMS states that the patient was sitting on the toilet when she had a syncopal episode. The witnessed the event. She did not fall after losing consciousness. The patient notes that she had her right hip replaced 2 days ago and was discharged home today. She notes that the hip was painful when she got home so she took 2 Oxycodone tablets. She denies eating or drinking anything with the pills. The patient does complain of some shortness of breath, but denies any chest pain or abdominal pain. She does not wear oxygen at home at baseline. The patient denies falling off of the toilet or injuring the right hip when she lost consciousness. Home Medications Home Medications Medication Instructions Recorded Confirmed Type diclofenac sodium 50 mg PO . NOON 04/11/18 04/29/18 History PreserVision AREDS-2 1 cap PO DAILY 04/27/18 04/29/18 History acetaminophen 2 tab PO TID PRN 04/27/18 04/29/18 History aspirin [Ecotrin Low Strength] 81 mg PO BID #84 tab 04/28/18 04/29/18 Rx oxycodone 5 - 10 mg PO Q4H PRN #40 tab 04/28/18 04/29/18 Rx Allergies Allergy/AdvReac Type Severity Reaction Status Date / Time No Known Allergies Allergy Mild Unverified 04/29/18 21:15 Past Med/Surg History Medical History Hypertension (Inactive) Osteoarthritis Surgical History History of total right hip arthroplasty History of appendectomy History of colonoscopy Social History Communication Ability: Effective Beliefs That Will Affect Care: None Current Living Situation: Spouse Feels Safe at Home: Yes Safety Concerns: Feels Safe At This Time Smoking Status: Never smoker Hx Alcohol Use: Yes Hx Substance Use: No Review of Systems See HPI for pertinent positives & negatives. and A total of 10 systems reviewed and were otherwise negative Physical Exam Vital Signs Vital Signs - 24 hr 04/30/18 11:26 04/30/18 15:39 04/30/18 16:01 Temperature 36.9 C 36.7 C Temperature Source Oral Oral Pulse Rate - Lying 77 Pulse Rate - Sitting 84 Pulse Rate - Standing 91 H Pulse Rate Pulse Rate [Finger] 77 80 Pulse Rhythm [Finger] Pulse Strength [Finger] Respiratory Rate 18 20 Respiratory Effort / Characteristics Respiratory Depth Respiratory Pattern Blood Pressure - Lying 116/68 Blood Pressure - Sitting 128/72 Blood Pressure- Standing 128/75 Blood Pressure [Left Arm] 98/50 L 102/66 Blood Pressure Mean [Left Arm] 66 78 Blood Pressure Position [Left Arm] Lying Pulse Oximetry 96 98 Oxygen Delivery Method Room Air 04/30/18 16:21 04/30/18 20:12 04/30/18 23:00 Temperature 36.8 C 37.2 C Temperature Source Oral Oral Pulse Rate - Lying Pulse Rate - Sitting Pulse Rate - Standing Pulse Rate 76 Pulse Rate [Finger] 79 82 Pulse Rhythm [Finger] Pulse Strength [Finger] Respiratory Rate 18 18 Respiratory Effort / Characteristics Respiratory Depth Respiratory Pattern Blood Pressure - Lying Blood Pressure - Sitting Blood Pressure- Standing Blood Pressure [Left Arm] 143/76 H 140/64 Blood Pressure Mean [Left Arm] 98 89 Blood Pressure Position [Left Arm] Left Lateral Lying Pulse Oximetry 95 94 Oxygen Delivery Method Room Air Room Air 05/01/18 00:00 05/01/18 04:00 05/01/18 07:37 Temperature 36.9 C 37.0 C Temperature Source Oral Oral Pulse Rate - Lying Pulse Rate - Sitting Pulse Rate - Standing Pulse Rate Pulse Rate [Finger] 85 93 H Pulse Rhythm [Finger] Regular Pulse Strength [Finger] Normal Respiratory Rate 20 16 Respiratory Effort / Characteristics Non-Labored Spontaneous Respiratory Depth Normal Normal Respiratory Pattern Regular Blood Pressure - Lying Blood Pressure - Sitting Blood Pressure- Standing Blood Pressure [Left Arm] 123/62 169/72 H Blood Pressure Mean [Left Arm] 82 104 Blood Pressure Position [Left Arm] Lying Lying Pulse Oximetry 96 95 Oxygen Delivery Method Room Air Room Air Room Air 05/01/18 08:06 Temperature Temperature Source Pulse Rate - Lying Pulse Rate - Sitting Pulse Rate - Standing Pulse Rate Pulse Rate [Finger] Pulse Rhythm [Finger] Pulse Strength [Finger] Respiratory Rate Respiratory Effort / Characteristics Respiratory Depth Respiratory Pattern Blood Pressure - Lying Blood Pressure - Sitting Blood Pressure- Standing Blood Pressure [Left Arm] 150/84 H Blood Pressure Mean [Left Arm] 106 Blood Pressure Position [Left Arm] Sitting Pulse Oximetry Oxygen Delivery Method General: Non-ill appearing older female in no acute distress. Awake, alert, oriented x3. HEENT: Normal cephalic atraumatic. Pupils are equal round and reactive to light. Extraocular movements are intact. Oropharynx is pink with moist mucous membranes. No swelling of the mouth lips or tongue. Neck: Supple with a midline trachea. No meningeal signs or stiffness, no JVD or bruits. No Stridor. Chest: Clear to auscultation bilaterally. No wheezes or rhonchi. No increased work of breathing. Heart: regular rate and rhythm. Abdomen: Soft nontender, nondistended without rebound guarding or rigidity. Extremities: No cyanosis clubbing or edema. No calf tenderness or assymetry. There is a wound vac present over the right hip. Spine/Back. Non tender to palpation. No CVA tenderness Skin: Good turgor without rashes. Neurologic exam: Cranial nerves two through 12 are intact. Motor and sensation are intact and symmetrical throughout. Course 2057: Past medical records reviewed. The patient was evaluated in room C7, and a complete history and physical examination were performed. 2217: I checked on the patient at this time. She does not believe she can go home with the pain in the hip as is. 2226: I reviewed the patient's case with Dr. Castillo - Orthopedics. He suggests admitting the patient to medicine. 2231: I reviewed the patient's case with Dr. Castillo - [facility]. She will evaluate the patient for further management. Administered Medications Acetaminophen (Tylenol) 1,000 mg PO TID [facility] Stop: 05/30/18 08:59 Last Admin: 04/30/18 23:47 Dose: 250 mg Documented by: [id number] Admin: 04/30/18 20:30 Dose: 1,000 mg Documented by: [id number] Admin: 04/30/18 14:44 Dose: 1,000 mg Documented by: [id number] Admin: 04/30/18 08:51 Dose: 1,000 mg Documented by: [id number] Aspirin (Ecotrin Ectab) 81 mg PO BID [facility] Stop: 05/30/18 08:59 Last Admin: 05/01/18 08:02 Dose: 81 mg Documented by: [id number] Admin: 04/30/18 20:30 Dose: 81 mg Documented by: [id number] Admin: 04/30/18 08:49 Dose: 81 mg Documented by: [id number] Multivitamins/Minerals (Multivitamin W/ Minerals Tab) 1 tab PO DAILY ROMINA Stop: 05/30/18 08:59 Last Admin: 05/01/18 08:02 Dose: 1 tab Documented by: [id number] Admin: 04/30/18 08:49 Dose: 1 tab Documented by: [id number] Senna/Docusate Sodium (Senokot S) 1 tab PO BID [facility] Stop: 05/30/18 11:29 Last Admin: 05/01/18 09:05 Dose: Not Given Documented by: [id number] Admin: 04/30/18 20:33 Dose: Not Given Documented by: [id number] Admin: 04/30/18 11:44 Dose: 1 tab Documented by: [id number] Discontinued Medications Acetaminophen (Tylenol) 650 mg PO Q6H [facility]INA Stop: 05/30/18 00:36 Last Admin: 04/30/18 09:08 Dose: Not Given Documented by: [id number] Admin: 04/30/18 01:56 Dose: 650 mg Documented by: [id number] Enoxaparin Sodium (Lovenox) 30 mg SQ Q12H ROMINA Stop: 05/30/18 05:59 Last Admin: 04/30/18 06:31 Dose: Not Given Documented by: [id number] Sodium Chloride (Nss 1000ml) 1,000 mls @ 80 mls/hr IV .[id number] ROMINA Stop: 05/02/18 01:29 Last Infusion: 05/01/18 07:53 Dose: 0 mls/hr Documented by: [id number] Admin: 04/30/18 14:46 Dose: 80 mls/hr Documented by: [id number] Infusion: 04/30/18 14:35 Dose: 80 mls/hr Documented by: [id number] Admin: 04/30/18 02:05 Dose: 80 mls/hr Documented by: [id number] Medical Decision Making Differential Diagnosis Differential Diagnosis includes: Syncope, vasovagal episdoe, infection, arrhythmia, pulmonary embol, electrolyte or metabolic abnormality. Medical Records Attestation: I reviewed the patient's medical records. Home Medications Current Medication List: was personally reviewed by me Laboratory Data Attestation: I reviewed the patient's lab results. Result diagrams: 04/29/18 21:20 04/29/18 22:02 Lab Results 04/29/18 04/29/18 04/29/18 Range/Units 21:20 21:20 21:20 WBC 12.04 H (4.8-10.8) K/uL RBC 3.79 L (4.2-5.4) M/uL Hgb 11.4 L (12.0-16.0) g/dL Hct 34.0 L (37-47) % MCV 89.7 (80-100) fL MCH 30.1 (25-34) pg MCHC 33.5 (32-36) g/dL RDW Std Deviation 45.2 (36.4-46.3) fL RDW Coeff of Will 13.8 (11.5-14.5) % Plt Count 282 (130-400) K/uL MPV 9.1 (7.4-10.4) fL Immature Gran % (Auto) 0.7 % Neut % (Auto) 78.4 % Lymph % (Auto) 10.1 % [place] % (Auto) 9.6 % Eos % (Auto) 0.9 % Baso % (Auto) 0.3 % Immature Gran # (Auto) 0.08 H (0.00-0.02) K/uL Neut # (Auto) 9.44 H (1.4-6.5) K/uL Lymph # (Auto) 1.22 (1.2-3.4) K/uL [place] # (Auto) 1.15 H (0.11-0.59) K/uL Eos # (Auto) 0.11 (0-0.5) K/uL Baso # (Auto) 0.04 (0-0.2) K/uL PT Cancelled INR Cancelled APTT Cancelled PTT Ratio Cancelled Sodium Cancelled Potassium Cancelled Chloride Cancelled Carbon Dioxide Cancelled Anion Gap Cancelled BUN Cancelled Creatinine Cancelled Est Cr Clr Drug Dosing Cancelled Est GFR ( Amer) Cancelled Est GFR (Non-Af Amer) Cancelled BUN/Creatinine Ratio Cancelled Glucose Cancelled Calcium Cancelled Magnesium Cancelled Total Bilirubin Cancelled AST Cancelled ALT Cancelled Alkaline Phosphatase Cancelled Troponin I (0-0.045) ng/ml Total Protein Cancelled Albumin Cancelled Globulin Cancelled Albumin/Globulin Ratio Cancelled TSH Cancelled Specimen Hemolysis Urine Color Urine Appearance (Clear) Urine pH (4.5-7.5) Ur Specific Dieterich (1.000-1.030) Urine Protein (Negative) Urine Glucose (UA) (Negative) Urine Ketones (Negative) Urine Blood (Negative) Urine Nitrite (Negative) Urine Bilirubin (Negative) Urine Urobilinogen (Negative) Ur Leukocyte Esterase (Negative) 04/29/18 04/29/18 04/29/18 Range/Units 22:02 22:02 22:51 WBC (4.8-10.8) K/uL RBC (4.2-5.4) M/uL Hgb (12.0-16.0) g/dL Hct (37-47) % MCV (80-100) fL MCH (25-34) pg MCHC (32-36) g/dL RDW Std Deviation (36.4-46.3) fL RDW Coeff of Will (11.5-14.5) % Plt Count (130-400) K/uL MPV (7.4-10.4) fL Immature Gran % (Auto) % Neut % (Auto) % Lymph % (Auto) % [place] % (Auto) % Eos % (Auto) % Baso % (Auto) % Immature Gran # (Auto) (0.00-0.02) K/uL Neut # (Auto) (1.4-6.5) K/uL Lymph # (Auto) (1.2-3.4) K/uL [place] # (Auto) (0.11-0.59) K/uL Eos # (Auto) (0-0.5) K/uL Baso # (Auto) (0-0.2) K/uL PT 11.0 INR 1.1 APTT 21.2 PTT Ratio 0.8 Sodium 139 Potassium 3.8 Chloride 104 Carbon Dioxide 28 Anion Gap 6.0 BUN 22 H Creatinine 0.93 Est Cr Clr Drug Dosing 55.9 Est GFR ( Amer) 65.0 Est GFR (Non-Af Amer) 56.0 BUN/Creatinine Ratio 23.5 H Glucose 111 H Calcium 7.9 L Magnesium 1.9 Total Bilirubin 0.5 AST 64 H ALT 40 Alkaline Phosphatase 80 Troponin I (0-0.045) ng/ml Total Protein 6.2 L Albumin 2.6 L Globulin 3.6 Albumin/Globulin Ratio 0.7 L TSH 3.060 Specimen Hemolysis Urine Color Yellow Urine Appearance Clear (Clear) Urine pH 7.0 (4.5-7.5) Ur Specific Dieterich 1.011 (1.000-1.030) Urine Protein Negative (Negative) Urine Glucose (UA) Negative (Negative) Urine Ketones Trace H (Negative) Urine Blood Negative (Negative) Urine Nitrite Negative (Negative) Urine Bilirubin Negative (Negative) Urine Urobilinogen Negative (Negative) Ur Leukocyte Esterase Negative (Negative) 04/30/18 Range/Units 14:34 WBC (4.8-10.8) K/uL RBC (4.2-5.4) M/uL Hgb (12.0-16.0) g/dL Hct (37-47) % MCV (80-100) fL MCH (25-34) pg MCHC (32-36) g/dL RDW Std Deviation (36.4-46.3) fL RDW Coeff of Will (11.5-14.5) % Plt Count (130-400) K/uL MPV (7.4-10.4) fL Immature Gran % (Auto) % Neut % (Auto) % Lymph % (Auto) % [place] % (Auto) % Eos % (Auto) % Baso % (Auto) % Immature Gran # (Auto) (0.00-0.02) K/uL Neut # (Auto) (1.4-6.5) K/uL Lymph # (Auto) (1.2-3.4) K/uL [place] # (Auto) (0.11-0.59) K/uL Eos # (Auto) (0-0.5) K/uL Baso # (Auto) (0-0.2) K/uL PT INR APTT PTT Ratio Sodium Potassium Chloride Carbon Dioxide Anion Gap BUN Creatinine Est Cr Clr Drug Dosing Est GFR ( Amer) Est GFR (Non-Af Amer) BUN/Creatinine Ratio Glucose Calcium Magnesium Total Bilirubin AST ALT Alkaline Phosphatase Troponin I < 0.015 (0-0.045) ng/ml Total Protein Albumin Globulin Albumin/Globulin Ratio TSH Specimen Hemolysis Urine Color Urine Appearance (Clear) Urine pH (4.5-7.5) Ur Specific Di[place] (1.000-1.030) Urine Protein (Negative) Urine Glucose (UA) (Negative) Urine Ketones (Negative) Urine Blood (Negative) Urine Nitrite (Negative) Urine Bilirubin (Negative) Urine Urobilinogen (Negative) Ur Leukocyte Esterase (Negative) Imaging Data Attestation: I personally reviewed and interpreted this imaging study as follows : Radiologist's Impression: XR chest 1V portable CLINICAL HISTORY: syncope COMPARISON STUDY: 04/13/2018 FINDINGS: The heart is mildly enlarged. There is aortic tortuosity. There is suspected underlying emphysema. There is no focal pulmonary consolidation. There are no pleural effusions.[ There is no failure. Advanced arthritic changes involve the shoulders. IMPRESSION: No active disease in the chest. Electronically signed by: Dante Wright M.D. 04/29/2018 9:34 PM ECG Data Attestation: I personally reviewed and interpreted this ECG as follows: Indication: other (Fall) Rate (beats per minute): 99 Rhythm: normal sinus Findings: + other (Poor baseline) and + nonspecific-ST abn; no acute ischemic change Comparison ECG Date: from (04/13/2018) Change: no significant change Blood Pressure Blood Pressure Findings: Elevated blood pressure MDM Narrative This patient comes in as described above. she was discharged today after having any hip replacement surgery. She was having a lot of right hip pain and took 2 oxycodone and passed out on the toilet. She feels better at present she was initially hypotensive. She denies chest pain or any significant shortness of breath. She does have a wound VAC in place on the right. IV access established EKG was obtained which shows no definite acute ischemic changes multiple blood testing was obtained. She was reassessed frequently. Her workup here was unremarkable. She has nothing to suggest significant arrhythmia. Her is concerned about taking her home I think it is reasonable to observe her given the fact that she passed out and is 87 she may ultimately need placement for rehab as well. I did discuss case with Dr. Peter Castillo, who is on-call for orthopedics, and they will see her in the hospital. I also discussed the case with Dr. Brandy Castillo who is the medical hospitalist who will admit the patient. Impression & Plan Syncope Discharge Plan Visit Data *Final* Discharge Date/Time: 04/30/18 00:10 Chief Complaint: Syncope Stated Complaint: SYNCOPE ED Provider: Evan Vela Discharge Problem: Syncope Patient Disposition: Admitted As Inpatient Discharge Instructions Interventions: ED Discharge Assessment Last Done: 04/30/18 00:10 Discharge Problem: Syncope Qualifiers: Syncope type: unspecified Qualified Code(s): R55 - Syncope and collapse The scribe's documentation has been prepared under my direction and personally reviewed by me in its entirety. I confirm that the note above accurately reflects all work, treatment, procedures, and medical decision making performed by me.
[2018-04-29 22:25] LABS: INR 1.1 (0.9-1.1); Partial Thromboplastin Ratio 0.8; Partial Thromboplastin Time 21.2 Seconds (21.0-31.0)
[2018-04-29 22:30] LABS: Albumin Level 2.6 gm/dl (3.4-5.0); BUN Creatinine Ratio 23.5 (10-20); Calcium 7.9 mg/dl (8.5-10.1); Creatinine Clr Calc Pharmacy 55.9 ml/min; Magnesium 1.9 mg/dl (1.8-2.4); Potassium 3.8 mmol/L (3.5-5.1)
[2018-04-29 22:39] LABS: Albumin Globulin Ratio 0.7 (0.9-2); Bilirubin,Total 0.5 mg/dl (0.2-1); Globulin 3.6 gm/dl (2.5-4.0); Total Protein 6.2 gm/dl (6.4-8.2)
[2018-04-29 23:00] LABS: Appearance Urine Clear (Clear); Bilirubin Urine Negative (Negative); Blood Urine Negative (Negative); Color Urine Yellow; Glucose Urine UA Negative (Negative); Ketones Urine Trace (Negative); Leukocyte Esterase Urine Negative (Negative); Nitrite Urine Negative (Negative); Protein Urine Negative (Negative); Specific Gravity Urine 1.011 (1.000-1.030); Urobilinogen Urine Negative (Negative)
--- NOTE | 2018-04-29 23:07 | History & Physical Report ---
Date of Service April 29, 2018 Assessment & Plan (1) Status post total hip replacement, right: 87-year-old female with no significant past medical history, status post right hip total arthroplasty 04/27/2018, who was discharged earlier this morning in a good state of health. She had been released home for home PT. She was experiencing some right hip pain and so took 2 tabs of her Roxicodone. Later she went to the bathroom to urinate, denies any straining, and then began to pass out. Her who provides the rest of the history, states he found her slumped slightly to one side on the toilet. Denies any flailing of extremities or falling to the floor. He tried to arouse her and after a few minutes was able to, she began mumbling in response to his voice. He called 911. They brought her here to the emergency room. She lost consciousness for total of about 5 minutes. She denies any chest pain or difficulty breathing associated with this event, no headache or visual change, currently denies any abdominal pain or weakness. Endorses right hip pain, mild. ED course: Normotensive, not tachycardic, not hypoxic, afebrile. NSR on telemetry. Chemistry profile revealed no electrolyte abnormalities, creatinine 0.9, slightly elevated glucose 111, AST 64. Assessment: Syncope likely secondary to orthostatic hypotension in the setting of postop, low p.o. intake, opioid medication Plan: -Med telemetry -Maintenance fluids at 80 -Judicious with opioids, ordered only 1 tab Roxicodone every 4 hours. -Orthostatic vitals -morning EKG -Troponin x1 -PT OT -Scheduled Tylenol 650 every 6 FEN/GI: NSS @ 80 ml/hr, regular diet DVT ppx: Lovenox twice daily, continue home baby aspirin CODE STATUS: Full code as discussed with patient DISPO: Med telemetry (2) Syncope: History of Present Illness Chief Complaint: Syncope Primary Care Provider: Dr. Interiano 87-year-old female with no significant past medical history, status post right hip total arthroplasty 04/27/2018, who was discharged earlier this morning in a good state of health. She had been released home for home PT. She was experiencing some right hip pain and so took 2 tabs of her Roxicodone. Later she went to the bathroom to urinate, denies any straining, and then began to pass out. Her who provides the rest of the history, states he found her slumped slightly to one side on the toilet. Denies any flailing of extremities or falling to the floor. He tried to arouse her and after a few minutes was able to, she began mumbling in response to his voice. He called 911. They brought her here to the emergency room. She lost consciousness for total of about 5 minutes. She denies any chest pain or difficulty breathing associated with this event, no headache or visual change, currently denies any abdominal pain or weakness. Endorses right hip pain, mild. Denies any family history of sudden unexplained or heart problems. Social history: Lives with her . DeniesT/E/D. ED course: Normotensive, not tachycardic, not hypoxic, afebrile. Chemistry profile revealed no electrolyte abnormalities, creatinine 0.9, slightly elevated glucose 111, AST 64. Allergies Allergy/AdvReac Type Severity Reaction Status Date / Time No Known Allergies Allergy Mild Unverified 04/29/18 21:15 Home Medications Home Medications Medication Instructions Recorded Confirmed Type diclofenac sodium 50 mg PO . NOON 04/11/18 04/29/18 History PreserVision AREDS-2 1 cap PO DAILY 04/27/18 04/29/18 History acetaminophen 2 tab PO TID PRN 04/27/18 04/29/18 History aspirin [Ecotrin Low Strength] 81 mg PO BID #84 tab 04/28/18 04/29/18 Rx oxycodone 5 - 10 mg PO Q4H PRN #40 tab 04/28/18 04/29/18 Rx Past Med/Surg History Medical History Hypertension (Inactive) Osteoarthritis Surgical History History of total right hip arthroplasty History of appendectomy History of colonoscopy Social History Preferred Language: Frisian Communication Ability: Effective Pre Press Manager Required: No Beliefs That Will Affect Care: None Current Living Situation: Spouse Feels Safe at Home: Yes Safety Concerns: Feels Safe At This Time Smoking Status: Never smoker Hx Alcohol Use: Yes Hx Substance Use: No Review of Systems All systems reviewed & are unremarkable except as noted in HPI & below Physical Exam Vital Signs (Past 24 Hours): Last Vital Signs Temp 36.9 C 04/29/18 21:07 Pulse 90 04/29/18 22:54 Resp 18 04/29/18 22:54 BP 139/72 04/29/18 22:54 Pulse Ox 97 04/29/18 22:54 Physical Exam: Vitals noted as above and within normal limits . GENERAL: Awake, alert to person, place, and time, nontoxic-appearing, in no distress HENT: Normocephalic, atraumatic. . Mucus membranes appear dry. EYES: Normal conjunctiva. Sclera non-icteric. EOMI. NECK: Supple. Full range of motion. No JVD RESPIRATORY: Clear to auscultation. Normal work of breathing. CARDIAC: Regular rate, normal rhythm. Extremities warm and well perfused, 1 - 2 out of 6 systolic murmur, 2+ radial pulses bilaterally; 2+ posterior tibialis pulses bilaterally. ABDOMEN: Soft, non-distended. No tenderness to palpation in all four quadrants. No rebound or guarding. No masses. Bowel sounds are normal. LOWER EXTREMITIES: Inspection of calves reveal equal size bilaterally. They are non-tender. No edema. No discoloration. MSK: Miryam VAC dressing intact. Neurovascularly intact in bilateral lower extremities. NEURO: No focal gross focal motor deficits noted. Sensation in tact. CN II-XII grossly in tact. SKIN: Rash not present. No jaundice noted. Significant lesions not present. PSYCH: Appropriate mood and affect. Cooperative. Exam as done by Yeny Leonardo MD, Unit Receptionist. Results & Data Laboratory Results 04/29/18 04/29/18 04/29/18 Range/Units 22:51 22:02 22:02 WBC (4.8-10.8) K/uL RBC (4.2-5.4) M/uL Hgb (12.0-16.0) g/dL Hct (37-47) % MCV (80-100) fL MCH (25-34) pg MCHC (32-36) g/dL RDW Std Deviation (36.4-46.3) fL RDW Coeff of Will (11.5-14.5) % Plt Count (130-400) K/uL MPV (7.4-10.4) fL Immature Gran % (Auto) % Neut % (Auto) % Lymph % (Auto) % [place] % (Auto) % Eos % (Auto) % Baso % (Auto) % Immature Gran # (Auto) (0.00-0.02) K/uL Neut # (Auto) (1.4-6.5) K/uL Lymph # (Auto) (1.2-3.4) K/uL [place] # (Auto) (0.11-0.59) K/uL Eos # (Auto) (0-0.5) K/uL Baso # (Auto) (0-0.2) K/uL PT 11.0 INR 1.1 APTT 21.2 PTT Ratio 0.8 Sodium 139 Potassium 3.8 Chloride 104 Carbon Dioxide 28 Anion Gap 6.0 BUN 22 H Creatinine 0.93 Est Cr Clr Drug Dosing 55.9 Est GFR ( Amer) 65.0 Est GFR (Non-Af Amer) 56.0 BUN/Creatinine Ratio 23.5 H Glucose 111 H Calcium 7.9 L Magnesium 1.9 Total Bilirubin 0.5 AST 64 H ALT 40 Alkaline Phosphatase 80 Total Protein 6.2 L Albumin 2.6 L Globulin 3.6 Albumin/Globulin Ratio 0.7 L TSH 3.060 Specimen Hemolysis Urine Color Yellow Urine Appearance Clear (Clear) Urine pH 7.0 (4.5-7.5) Ur Specific [place] 1.011 (1.000-1.030) Urine Protein Negative (Negative) Urine Glucose (UA) Negative (Negative) Urine Ketones Trace H (Negative) Urine Blood Negative (Negative) Urine Nitrite Negative (Negative) Urine Bilirubin Negative (Negative) Urine Urobilinogen Negative (Negative) Ur Leukocyte Esterase Negative (Negative) 04/29/18 04/29/18 04/29/18 Range/Units 21:20 21:20 21:20 WBC 12.04 H (4.8-10.8) K/uL RBC 3.79 L (4.2-5.4) M/uL Hgb 11.4 L (12.0-16.0) g/dL Hct 34.0 L (37-47) % MCV 89.7 (80-100) fL MCH 30.1 (25-34) pg MCHC 33.5 (32-36) g/dL RDW Std Deviation 45.2 (36.4-46.3) fL RDW Coeff of Will 13.8 (11.5-14.5) % Plt Count 282 (130-400) K/uL MPV 9.1 (7.4-10.4) fL Immature Gran % (Auto) 0.7 % Neut % (Auto) 78.4 % Lymph % (Auto) 10.1 % [place] % (Auto) 9.6 % Eos % (Auto) 0.9 % Baso % (Auto) 0.3 % Immature Gran # (Auto) 0.08 H (0.00-0.02) K/uL Neut # (Auto) 9.44 H (1.4-6.5) K/uL Lymph # (Auto) 1.22 (1.2-3.4) K/uL [place] # (Auto) 1.15 H (0.11-0.59) K/uL Eos # (Auto) 0.11 (0-0.5) K/uL Baso # (Auto) 0.04 (0-0.2) K/uL PT Cancelled INR Cancelled APTT Cancelled PTT Ratio Cancelled Sodium Cancelled Potassium Cancelled Chloride Cancelled Carbon Dioxide Cancelled Anion Gap Cancelled BUN Cancelled Creatinine Cancelled Est Cr Clr Drug Dosing Cancelled Est GFR ( Amer) Cancelled Est GFR (Non-Af Amer) Cancelled BUN/Creatinine Ratio Cancelled Glucose Cancelled Calcium Cancelled Magnesium Cancelled Total Bilirubin Cancelled AST Cancelled ALT Cancelled Alkaline Phosphatase Cancelled Total Protein Cancelled Albumin Cancelled Globulin Cancelled Albumin/Globulin Ratio Cancelled TSH Cancelled Specimen Hemolysis Urine Color Urine Appearance (Clear) Urine pH (4.5-7.5) Ur Specific [place] (1.000-1.030) Urine Protein (Negative) Urine Glucose (UA) (Negative) Urine Ketones (Negative) Urine Blood (Negative) Urine Nitrite (Negative) Urine Bilirubin (Negative) Urine Urobilinogen (Negative) Ur Leukocyte Esterase (Negative) Supervising Physician Co-Signing Physician Notes Patient seen and examined, chart reviewed, case discussed with Dr. Leonardo and I agree with her assessment and plan as above. Patient is an 87yo female s/p right CHRIS with syncopal episode this evening. Patient took two pain pills prior to event. Otherwise no complaints On physical exam she is afebrile, HD stable, NAD Wound vac present on right hip, no hematoma/bleeding/erythema/drainage Remainder of exam unremarkable Labs and images reviewed Assessment/Plan: Observation with telemetry monitoring. Check orhtostatic VS. Gently IVF. Remainder of plan as above. Troponin and repeat EKG in AM. Remainder of plan as above Resident Activity Tracking Resident Involvement: Resident Care Provided Care Provided: Adult Hospital Medicine (1) Syncope Syncope type: unspecified Qualified Code(s): R55 - Syncope and collapse
[2018-04-30] MEDS ORDERED: ZOLPIDEM TARTRATE 5 MG TAB PO PRN (00:37)
[2018-04-30] MEDS ORDERED: POLYETHYLENE (MIRALAX) 17 GM PACK PO PRN (00:37)
[2018-04-30] MEDS ORDERED: MAGNESIUM HYDROXIDE SUSP 30 ML UDC PO PRN (00:37)
[2018-04-30] MEDS ORDERED: ONDANSETRON INJ 2 MG/ML 2 ML VIAL IV PRN (00:37)
[2018-04-30] MEDS ORDERED: OXYCODONE HCL IR 5 MG TAB (IMMEDIATE RELEASE) PO PRN (00:37)
[2018-04-30] MEDS ORDERED: ALUMINUM/MAGNESIUM SUSP 30 ML UDC PO PRN (00:37)
[2018-04-30] MEDS: ACETAMINOPHEN 325 MG TAB PO SCH ×2 (01:56→09:08)
[2018-04-30] MEDS: SODIUM CHLORIDE 0.9% 1000ML 1,000 ML IV SCH ×2 (02:05→14:46)
[2018-04-30] MEDS ORDERED: ENOXAPARIN INJ 30 MG/0.3 ML SYR SQ SCH (06:00)
--- NOTE | 2018-04-30 08:46 | Consultation Report ---
DATE OF CONSULTATION: 04/30/2018 ORTHOPEDIC CONSULT SUBJECTIVE: An 87-year-old white female who is status post a right total hip replacement done on Monday by Dr. Ha. She has done well postoperatively and was discharged yesterday morning. She went home and started having a bit more pain. She took 2 oxycodone tablets and then went to the bathroom. She developed hypotension and passed out in the bathroom. Her found her slumped over. They called 911 and brought to the Emergency Room. She had a workup which was really negative. It sounds like a vasovagal episode. She has continued to have some right hip pain of moderate severity. No other complaints. There was no trauma and no fall. PAST MEDICAL HISTORY: As per the admission H and P. OBJECTIVE: VITAL SIGNS: Temperature is 37.0. Vital signs stable. GENERAL: Physical examination reveals a pleasant, but somewhat apprehensive and scared elderly female. She is lying in bed, looks reasonably comfortable. EXTREMITIES: Examination of the right hip reveals the wound VAC to be in place. Leg lengths are equal. Thigh is soft and supple. She is neurologically intact. LABORATORY DATA: Hemoglobin is 12.04. Hematocrit 11.4. Electrolytes are stable. EKG is essentially unchanged. Her chest x-ray is negative. ASSESSMENT: An 87-year-old fairly healthy female postop day 3 from a right total hip replacement with what sounds like a vasovagal episode which may have been exacerbated by her oxycodone intake. There is no sign of any hip problems. No signs of any cardiac event or embolic event. I think this is just a vasovagal episode. The patient is clearly scared and her is scared and did not want to take her home. PLAN: She has been put in the hospital observation status, I believe. She just needs placement. I do not think she is able to go home due to concerns and apprehension with caretakers. The best move is to go to rehab or retirement facility. The medicine services admitted her. We will resume DVT prophylaxis including TEDs, SCDs, and likely aspirin. We will try and limit oxycodone, may be use tramadol for pain. She is orthopedically okay for discharge any time, this can be arranged. Any orthopedic questions can be directed to me at [phone] Ha.
[2018-04-30] MEDS: ASPIRIN 81 MG ECTAB PO SCH ×2 (08:49→20:30)
[2018-04-30] MEDS: CEROVITE ADV FORMULA TAB PO SCH (08:49)
[2018-04-30] MEDS: ACETAMINOPHEN 500 MG TAB PO SCH ×4 (08:51→23:47)
[2018-04-30] MEDS ORDERED: ASPIRIN 81 MG ECTAB PO SCH (09:00)
[2018-04-30] MEDS: DOCUSATE SODIUM/SENNA 50/8.6MG TAB PO SCH ×2 (11:44→20:33)
--- NOTE | 2018-04-30 17:04 | Hospitalist Progress Note ---
Date of Service April 30, 2018 Assessment & Plan (1) Syncope: She had been released home for home PT. She was experiencing some right hip pain and so took 2 tabs of her Roxicodone. Later she went to the bathroom to urinate, denies any straining, and then began to pass out. - Syncope likely related to micturation vasovagal and medication-related. - No further work-up needed - Minimize opioid as able (2) Status post total hip replacement, right: Seen by Dr. Castillo without orthopedic concerns. - PT/OT/CM - Low-dose opiates as needed; consider tramadol (3) Hypertension: Per notes; however, BP is 100/65 without HTN meds. - Monitor BP (4) DVT prophylaxis: Aspirin 81mg PO BID per orthopedics Subjective 87yo F w/ hx of recent hip replacement who presents for syncopal episode after taking her pain meds at home. This morning, she is in good spirits. No further syncope or lightheadedness. Reports no fevers/chills, chest pain, shortness of breath, abdominal pain, nausea, or vomiting. Physical Exam Vital Signs (Past 24 Hours): Last Vital Signs Temp 36.7 C 04/30/18 15:39 Pulse 76 04/30/18 16:21 Resp 20 04/30/18 15:39 BP 102/66 04/30/18 15:39 Pulse Ox 98 04/30/18 15:39 Constitutional: WD/WN, vitals as above Eyes: EOM intact bilaterally; no conjunctival abnormality ENMT: external ear and nose normal, oropharynx normal Neck: trachea midline, no thyromegaly normal visual inspection Respiratory: normal respiratory effort, lungs clear to auscultation no respiratory distress Cardiovascular: RRR, no murmur, no edema Gastrointestinal (Abdomen): Inspection/Auscultation: abdomen normal to inspection; abdomen not distended Musculoskeletal: no cyanosis or clubbing, extremities motor strength 5/5 Skin: no rashes, warm and dry Neurologic: moves all extremities and awake Psychiatric: Orientation: alert, oriented to person and cooperative (1) Syncope Syncope type: unspecified Qualified Code(s): R55 - Syncope and collapse
[2018-05-01] MEDS: CEROVITE ADV FORMULA TAB PO SCH (08:02)
[2018-05-01] MEDS: ASPIRIN 81 MG ECTAB PO SCH (08:02)
[2018-05-01] MEDS: DOCUSATE SODIUM/SENNA 50/8.6MG TAB PO SCH (09:05)
[2018-05-01] MEDS: ACETAMINOPHEN 500 MG TAB PO SCH (10:06)
[2018-05-01 11:28] VITALS: PULSE 99; TEMP 98.4; O2SAT 98
[2018-05-01 11:52] VITALS: BP 139/72
--- NOTE | 2018-05-01 18:16 | Discharge Summary ---
Date of Service May 01, 2018 Admission HPI Per Admitting Provider 87-year-old female with no significant past medical history, status post right hip total arthroplasty 04/27/2018, who was discharged earlier this morning in a good state of health. She had been released home for home PT. She was experiencing some right hip pain and so took 2 tabs of her Roxicodone. Later she went to the bathroom to urinate, denies any straining, and then began to pass out. Her who provides the rest of the history, states he found her slumped slightly to one side on the toilet. Denies any flailing of extremities or falling to the floor. He tried to arouse her and after a few minutes was able to, she began mumbling in response to his voice. He called 911. They brought her here to the emergency room. She lost consciousness for total of about 5 minutes. She denies any chest pain or difficulty breathing associated with this event, no headache or visual change, currently denies any abdominal pain or weakness. Endorses right hip pain, mild. Denies any family history of sudden unexplained or heart problems. Social history: Lives with her . DeniesT/E/D. ED course: Normotensive, not tachycardic, not hypoxic, afebrile. Chemistry profile revealed no electrolyte abnormalities, creatinine 0.9, slightly elevated glucose 111, AST 64. Principal Diagnosis Vasovagal syncope with likely medication exacerbation Discharge Exam Constitutional WD/WN, vitals as above Eyes EOM intact bilaterally; no conjunctival abnormality ENMT external ear and nose normal, oropharynx normal Neck trachea midline, no thyromegaly normal visual inspection Respiratory normal respiratory effort, lungs clear to auscultation no respiratory distress Cardiovascular RRR, no murmur, no edema Gastrointestinal (Abdomen) Inspection/Auscultation: abdomen normal to inspection; abdomen not distended Musculoskeletal no cyanosis or clubbing, extremities motor strength 5/5 Skin no rashes, warm and dry Neurologic moves all extremities and awake Psychiatric Orientation: alert, oriented to person and cooperative Discharge Data Allergies Allergy/AdvReac Type Severity Reaction Status Date / Time No Known Allergies Allergy Mild Unverified 04/29/18 21:15 Consultations 04/29/18 22:27 ED Decision to Admit Stat 04/30/18 00:37 Consult Case Management - Discharge Planning Routine Hospital Course (1) Syncope: She had been released home for home PT. She was experiencing some right hip pain and so took 2 tabs of her Roxicodone. Later she went to the bathroom to urinate, denies any straining, and then began to pass out. - Syncope likely related to micturation vasovagal and medication-related. - No further work-up needed - Minimize opioid as able - By discharge, BP stable and not hypotensive. Patient ambulating without dizziness or lightheadedness. Decided to go home. (2) Status post total hip replacement, right: Seen by Dr. Castillo without orthopedic concerns. - PT/OT/CM - Low-dose opiates as needed; consider tramadol (3) Hypertension: Per notes; however, BP is 100/65 without HTN meds. - By discharge, BP was 170/70. Will need PCP BP check after off opiates. (4) DVT prophylaxis: Aspirin 81mg PO BID per orthopedics Total Time Total Time Spent Total Time Spent (In Minutes): 40 Total Time Includes: Examination of the Patient, Discharge Planning and Medication Reconciliation Discharge Plan Discharge Items Patient Disposition: Home - Self-Care Reason For Visit: SYNCOPE Discharge Diagnosis: Syncope Discharge Goals: Diagnostic testing, Improve function and Increase independence Activity: Resume your previous activity Non-emergency contact: Primary Care Provider and Surgeon Call non-emergency contact if: you have any medication questions, your pain is not controlled and your temperature is above 100.5 Follow-up/Referrals: Peter Castillo MD [Surgeon] - PCP,NO [Primary Care Provider] - Diet: Regular Addtl Provider Instructions: Ms. Mcgrath, You were admitted for a loss of consciousness. This was likely due to taking pain medication on an empty stomach. Please take as little pain medication as possible and take it with plenty of food and drink. You had no further issues with losing consciosness while you were here in the hospital. Please follow up with your primary care doctor and Dr. Castillo at your normally scheduled times. Prescriptions: Continued diclofenac sodium 50 mg Tablet,Delayed Release (Dr/Ec) 50 mg PO . NOON RF: 0 acetaminophen 200 mg 2 tab PO TID PRN (Reason: Pain) RF: 0 PreserVision AREDS-2 1 cap PO DAILY RF: 0 aspirin [Ecotrin Low Strength] 81 mg Tablet,Delayed Release (Dr/Ec) 81 mg PO BID Qty: 84 RF: 0 oxycodone 5 mg Tablet 5 - 10 mg PO Q4H PRN (Reason: pain) Qty: 40 RF: 0 Stand-Alone Forms: [employer] [facility] Discharge Orders: Discharge Order (Routine); Ordered 05/01/18 Ordered By: Jam Pena Admission Data Admit Date/Time: 04/29/18 23:57 Attending Provider: Jam Pena Admit Provider: Yeny Leonardo Primary Care Provider: PCP,NO Other Providers: Jam Pena Service: Telemetry Medical Other Interventions: Discharge Summary Assessment (RN) Last Done: 05/01/18 11:49 DC Date/Time DO NOT enter until pt leaves facility: 05/01/18 12:50
== END 2018-05-01 12:50 | disposition home or self-care (01) ==
LOC: ED 20:55 → 2N 20:55 → SUATTDRO 23:57 → 2N 04-30 00:10

== ENCOUNTER 2019-02-01 19:13 | Inpatient (IN) ==
[2019-02-01] MEDS ORDERED: SODIUM CHLORIDE 0.9% 1000ML 1,000 ML IV SCH ×2 (20:00→23:15)
[2019-02-01 20:34] LABS: Basophils # (auto) 0.03 K/uL (0-0.2); Basophils % (auto) 0.4 %; Hematocrit (blood only) 32.4 % (37-47); Hemoglobin 10.8 g/dL (12.0-16.0); Immature Granulocytes # (auto) 0.05 K/uL (0.00-0.02); Immature Granulocytes % (auto) 0.7 %; Mean Corpuscular Hgb Conc 33.3 g/dL (32-36); Mean Corpuscular Volume 86.9 fL (80-100); Mean Platelet Volume 7.8 fL (7.4-10.4); Monocytes # (auto) 0.41 K/uL (0.11-0.59); Monocytes % (auto) 5.8 %; Neutrophils # (auto) 5.64 K/uL (1.4-6.5); Neutrophils % (auto) 79.1 %; Platelet Count 314 K/uL (130-400); RDW Standard Deviation 44.2 fL (36.4-46.3); Red Blood Count 3.73 M/uL (4.2-5.4); White Blood Count 7.13 K/uL (4.8-10.8)
[2019-02-01 20:50] LABS: INR 1.1 (0.9-1.1); Prothrombin Time 11.4 Seconds (9.0-12.0)
[2019-02-01 20:51] LABS: Alanine Aminotransferase 33 U/L (12-78); Albumin Level 2.9 gm/dl (3.4-5.0); Aspartate Aminotransferase 38 U/L (15-37); BUN Creatinine Ratio 17.5 (10-20); Blood Urea Nitrogen 14 mg/dl (7-18); Carbon Dioxide 26 mmol/L (21-32); Chloride 99 mmol/L (98-107); Creatinine Clr Calc Pharmacy 49.7 ml/min; Est GFR (African American) 77.4; Est GFR (Non-African American) 66.8; Glucose 128 mg/dl (70-99); Potassium 3.5 mmol/L (3.5-5.1); Sodium 131 mmol/L (136-145)
[2019-02-01 21:02] LABS: Albumin Globulin Ratio 0.7 (0.9-2); Alkaline Phosphatase 123 U/L (45-117); Bilirubin,Total 0.6 mg/dl (0.2-1); Total Protein 6.9 gm/dl (6.4-8.2); Troponin I < 0.015 ng/ml (0-0.045)
[2019-02-01 21:38] LABS: Appearance Urine Clear (Clear); Bilirubin Urine Negative (Negative); Blood Urine Negative (Negative); Color Urine Yellow; Glucose Urine UA Negative (Negative); Ketones Urine Negative (Negative); Leukocyte Esterase Urine Negative (Negative); Nitrite Urine Negative (Negative); Protein Urine Negative (Negative); Specific Gravity Urine 1.015 (1.000-1.030); Urobilinogen Urine Negative (Negative)
--- NOTE | 2019-02-01 22:37 | History & Physical Report ---
Date of Service February 01, 2019 Assessment & Plan (1) Syncope: 88-year-old female presenting after syncopal event at home. Patient reports occasional "wooziness" as well as dizziness with positional changes. She has had multiple syncopal episodes of late, work-up thus far has been negati ve. She had a cardiology evaluation in [place] during her last hospital stay. Patient has a normal EKG. Cardiac exam unremarkable. Do not record of prior echocardiogram. Suspect at least some component of volume contraction and deconditioning contributing to patient's recurrent syncopal events. Observation to medical floor with telemetry monitoring. Fall precautions Check orthostatic vital signs x1 Check 2D echocardiogram -PT/OT evaluation Case management evaluation for possible home services needs (2) Weakness: Patient reports occasional episodes of diffuse weakness. Possible deconditioning after her prior hospital stay. Her reports that she eats a piece of bread for breakfast, a piece of bread for lunch and a reasonable dinn er. PT/OT assistance appreciated Check prealbumin to further assess nutritional status Regular diet as tolerated. Encourage p.o. intake Boost nutritional supplement 3 times daily with meals Present on Admission?: Yes (3) Hyponatremia: Mild hyponatremia with sodium = 131. Patient with history of hyponatremia in the past. Was administered salt tabs during her previous hospital stay and instructed to drink Gatorade Continue to monitor sodium level Encourage p.o. intake F/E/N -normal saline at 80 mL/h x 2 L, monitor electrolytes and replete as needed, regular diet as tolerated Prophylaxislow risk for DVT, no prophylaxis indicated Codefull Dispositionobservation to medical floor with telemetry Present on Admission?: Yes History of Present Illness Chief Complaint: Syncopal event Primary Care Provider: Jorge Interiano MD Lashell Mcgrath is an 88-year-old female presenting from home after a syncopal event. Her is at bedside and provides most of the history as patient is resting. states that around 1830 this evening while he was making supper he heard her calling for help. He reports that she was walking using her walker and had lost her balance and was beginning to fall. Her grabbed onto her and eased her to the floor. He thinks she may have briefly lost consciousness. No head trauma reported. Patient denies chest pain/palpitations/dizziness/numbness/weakness/incontinence of bowels or bladder preceding or following the event. She does not have full recollection of the event. denies seizure activity. No postictal period or confusion. Presently with no complaints. She does admit to feeling dizzy and "woozy" at times, admits to dizziness upon standing. Admits to poor appetite and decreased p.o. intake. voices some frustration about their need for frequent ER visits and her recurrent falls and syncope. She recently presented to [facility] on 01/18 after a syncopal event at home resulting in left wrist fracture, nasal fracture with laceration and subdural hematoma. She was subsequently transferred to [facility] for continued care. Patient was evaluated by Cardiology during her stay at [facility] for syncope who recommended orthostatic vitals, telemetry monitoring and echocardiogram. She was evaluated by neurosurgery as well and was diagnosed with a mild TBI, small anterior subdural hematoma. She was started on Keppra for seizure prophylaxis [address] of the head was stable. No surgical intervention required. She was evaluated by orthopedic surgery for her left wrist fracture which was subsequently splinted. ER course: Normal saline Allergies Allergy/AdvReac Type Severity Reaction Status Date / Time No Known Drug Allergies Allergy Unknown Verified 02/01/19 21:41 Home Medications Home Medications Medication Instructions Recorded Confirmed Type travoprost [Travatan Z] 1 drp OPB HS 01/17/19 02/01/19 History zolpidem [Ambien] 2.5 mg PO HS PRN 01/17/19 02/01/19 History polyethylene glycol 3350 [Miralax] 17 gm PO DAILY PRN 01/18/19 02/01/19 History levetiracetam 500 mg PO .BID UD 01/26/19 02/01/19 History acetaminophen [Tylenol Extra 500 mg PO BID 02/01/19 02/01/19 History Strength] Past Med/Surg History Medical History Idiopathic insomnia (Inactive) Internal hemorrhoids (Inactive) Surgical History History of appendectomy History of colonoscopy History of total right hip arthroplasty Family History Other No pertinent family history Social History Preferred Language: Croatian Communication Ability: Effective Communication Tools: Other Bronze Chaser Required: No Beliefs That Will Affect Care: None Current Living Situation: Spouse Feels Safe at Home: Yes Smoking Status: Never smoker Second Hand Exposure: No ; Hx Alcohol Use: Yes Alcohol type: wine Hx Substance Use: No Review of Systems Review of Systems: All systems reviewed & are unremarkable except as noted in HPI & below Patient denies fever/chills/malaise. She did have some fatigue today and wanted to sleep longer than usual. Denies chest pain/palpitations/shortness of breath/cough/wheeze. Denies abdominal pain/nausea/vomiting/diarrhea/constipation Physical Exam Physical Exam: General: patient resting comfortably, NAD, non-toxic in appearance, AA&O x 4 Skin: warm, dry, intact, no rashes or lesions HEENT: NC/AT, PERRL, EOMI, anicteric sclera, conjunctiva without injection, external ear normal to inspection and nontender, nares patent, dry mucus membranes, dentition intact, no oropharyngeal lesions, neck supple, trachea midline, no LAD, no thyromegaly, no JVD Heart: +S1/S2, regular, no m/r/g Lungs: equal air entry bilaterally, no rales/rhonchi/wheezes Abd: +BS, soft, NT/ND, no masses/organomegaly/ascites Ext: warm, 2+ pulses in UE/LE bilaterally, no clubbing/cyanosis or edema Neuro: nonfocal, patient AA&O x 4, speech intact, no facial droop, moving all extremities on command with equal strength 5/5 Results & Data Vital Signs (Past 12 Hours) Vital Signs Temp Pulse Resp BP Pulse Ox 02/01/19 21:31 95 H 18 95 02/01/19 21:30 94 H 22 129/70 94 02/01/19 21:01 95 H 21 93 02/01/19 21:00 96 H 23 115/61 93 02/01/19 20:31 96 H 21 93 02/01/19 20:30 96 H 22 126/71 92 02/01/19 20:26 98 H 20 92 02/01/19 20:01 98 H 21 91 02/01/19 20:00 100 H 22 143/69 H 92 02/01/19 19:31 101 H 20 95 02/01/19 19:30 101 H 21 148/75 H 94 02/01/19 19:25 36.9 C 99 H 20 133/70 95 02/01/19 19:21 99 H 16 94 02/01/19 19:20 98 H 15 135/72 94 02/01/19 19:16 97 H 14 133/70 95 Laboratory Results Lab Results 02/01/19 02/01/19 02/01/19 Range/Units 20:18 20:18 20:18 WBC 7.13 (4.8-10.8) K/uL RBC 3.73 L (4.2-5.4) M/uL Hgb 10.8 L (12.0-16.0) g/dL Hct 32.4 L (37-47) % MCV 86.9 (80-100) fL MCH 29.0 (25-34) pg MCHC 33.3 (32-36) g/dL RDW Std Deviation 44.2 (36.4-46.3) fL RDW Coeff of Will 14.0 (11.5-14.5) % Plt Count 314 (130-400) K/uL MPV 7.8 (7.4-10.4) fL Immature Gran % (Auto) 0.7 % Neut % (Auto) 79.1 % Lymph % (Auto) 14.0 % Russell % (Auto) 5.8 % Eos % (Auto) 0.0 % Baso % (Auto) 0.4 % Immature Gran # (Auto) 0.05 H (0.00-0.02) K/uL Neut # (Auto) 5.64 (1.4-6.5) K/uL Lymph # (Auto) 1.00 L (1.2-3.4) K/uL Russell # (Auto) 0.41 (0.11-0.59) K/uL Eos # (Auto) 0.00 (0-0.5) K/uL Baso # (Auto) 0.03 (0-0.2) K/uL PT 11.4 (9.0-12.0) Seconds INR 1.1 (0.9-1.1) Sodium 131 L (136-145) mmol/L Potassium 3.5 (3.5-5.1) mmol/L Chloride 99 (98-107) mmol/L Carbon Dioxide 26 (21-32) mmol/L Anion Gap 6.0 (3-11) BUN 14 (7-18) mg/dl Creatinine 0.80 (0.6-1.2) mg/dl Est Cr Clr Drug Dosing 49.7 ml/min Est GFR ( Amer) 77.4 Est GFR (Non-Af Amer) 66.8 BUN/Creatinine Ratio 17.5 (10-20) Glucose 128 H (70-99) mg/dl Calcium 8.0 L (8.5-10.1) mg/dl Phosphorus 2.6 (2.5-4.9) mg/dl Magnesium 2.0 (1.8-2.4) mg/dl Total Bilirubin 0.6 (0.2-1) mg/dl AST 38 H (15-37) U/L ALT 33 (12-78) U/L Alkaline Phosphatase 123 H (45-117) U/L Troponin I < 0.015 (0-0.045) ng/ml Total Protein 6.9 (6.4-8.2) gm/dl Albumin 2.9 L (3.4-5.0) gm/dl Globulin 4.0 (2.5-4.0) gm/dl Albumin/Globulin Ratio 0.7 L (0.9-2) TSH 2.020 (0.300-4.500) uIu/ml Urine Color Urine Appearance (Clear) Urine pH (4.5-7.5) Ur Specific [place] (1.000-1.030) Urine Protein (Negative) Urine Glucose (UA) (Negative) Urine Ketones (Negative) Urine Blood (Negative) Urine Nitrite (Negative) Urine Bilirubin (Negative) Urine Urobilinogen (Negative) Ur Leukocyte Esterase (Negative) 02/01/19 Range/Units 21:25 WBC (4.8-10.8) K/uL RBC (4.2-5.4) M/uL Hgb (12.0-16.0) g/dL Hct (37-47) % MCV (80-100) fL MCH (25-34) pg MCHC (32-36) g/dL RDW Std Deviation (36.4-46.3) fL RDW Coeff of Will (11.5-14.5) % Plt Count (130-400) K/uL MPV (7.4-10.4) fL Immature Gran % (Auto) % Neut % (Auto) % Lymph % (Auto) % Russell % (Auto) % Eos % (Auto) % Baso % (Auto) % Immature Gran # (Auto) (0.00-0.02) K/uL Neut # (Auto) (1.4-6.5) K/uL Lymph # (Auto) (1.2-3.4) K/uL Russell # (Auto) (0.11-0.59) K/uL Eos # (Auto) (0-0.5) K/uL Baso # (Auto) (0-0.2) K/uL PT (9.0-12.0) Seconds INR (0.9-1.1) Sodium (136-145) mmol/L Potassium (3.5-5.1) mmol/L Chloride (98-107) mmol/L Carbon Dioxide (21-32) mmol/L Anion Gap (3-11) BUN (7-18) mg/dl Creatinine (0.6-1.2) mg/dl Est Cr Clr Drug Dosing ml/min Est GFR ( Amer) Est GFR (Non-Af Amer) BUN/Creatinine Ratio (10-20) Glucose (70-99) mg/dl Calcium (8.5-10.1) mg/dl Phosphorus (2.5-4.9) mg/dl Magnesium (1.8-2.4) mg/dl Total Bilirubin (0.2-1) mg/dl AST (15-37) U/L ALT (12-78) U/L Alkaline Phosphatase (45-117) U/L Troponin I (0-0.045) ng/ml Total Protein (6.4-8.2) gm/dl Albumin (3.4-5.0) gm/dl Globulin (2.5-4.0) gm/dl Albumin/Globulin Ratio (0.9-2) TSH (0.300-4.500) uIu/ml Urine Color Yellow Urine Appearance Clear (Clear) Urine pH 7.0 (4.5-7.5) Ur Specific [place] 1.015 (1.000-1.030) Urine Protein Negative (Negative) Urine Glucose (UA) Negative (Negative) Urine Ketones Negative (Negative) Urine Blood Negative (Negative) Urine Nitrite Negative (Negative) Urine Bilirubin Negative (Negative) Urine Urobilinogen Negative (Negative) Ur Leukocyte Esterase Negative (Negative) ECG Additional Comments: The study shows sinus rhythm at 99 bpm with first-degree AV block MA = 216, QRS = 86, QTc = 456. No acute ischemic changes Code Status & VTE Plan Code Status FULL PG Care Time/CCT Total # of Minutes Spent Total Time Spent with Patient: Total time spent is greater than 50% in coordination of care (as documented) at patient's floor/unit and/or counseling patient: (1) Syncope Syncope type: unspecified Qualified Code(s): R55 - Syncope and collapse
[2019-02-01] MEDS ORDERED: DOCUSATE SODIUM 100 MG CAP PO PRN (23:15)
[2019-02-01] MEDS ORDERED: ZOLPIDEM TARTRATE 5 MG TAB PO PRN (23:15)
[2019-02-01] MEDS ORDERED: POLYETHYLENE (MIRALAX) 17 GM PACK PO PRN (23:15)
[2019-02-01 23:26] LABS: Phosphorus 2.6 mg/dl (2.5-4.9)
--- NOTE | 2019-02-01 23:55 | Emergency Department Note ---
Entered by Nilda Magallanes acting as a scribe for Ryan Richardson DO History of Present Illness General Chief complaint: Syncope (Near Syncope) Stated complaint: SYNCOPE, FALL, NAUSEA, DIZZINESS Source: patient and family () History of Present Illness Onset (ago): minute(s) (prior to arrival) Location: head (general) Pain Consistency: + other (episode) Quality: + other (fall) Associated symptoms: + denies other symptoms (changes in vision) and + other (loss of consciousness, dizziness, lightheadedness, fatigue); no chest pain, no nausea/vomiting, no shortness of breath and no weakness The patient is a 88 year old female who presents to the Emergency Room with complaints of an episode of a fall that occurred prior to arrival. The patient's states he was helping the patient walk to the bathroom when she fell and her lowered her to the ground. He states she lost consciousness for a few minutes but did not hit her head. The patient reports dizziness and lightheadedness. The patient denies chest pain, shortness of breath, nausea, weakness, and changes in vision. The patient's reports increased fatigue over the past two weeks. He states that this is the patient's 5th fall in the last several months under the same circumstances. In all these previous occasions she had no symptoms prior to passing out. Home Medications Home Medications Medication Instructions Recorded Confirmed Type travoprost [Travatan Z] 1 drp OPB HS 01/17/19 02/01/19 History zolpidem [Ambien] 2.5 mg PO HS PRN 01/17/19 02/01/19 History polyethylene glycol 3350 [Miralax] 17 gm PO DAILY PRN 01/18/19 02/01/19 History levetiracetam 500 mg PO .BID UD 01/26/19 02/01/19 History acetaminophen [Tylenol Extra 500 mg PO BID 02/01/19 02/01/19 History Strength] Allergies Allergy/AdvReac Type Severity Reaction Status Date / Time No Known Drug Allergies Allergy Unknown Verified 02/01/19 21:41 Past Med/Surg History Medical History Idiopathic insomnia (Inactive) Internal hemorrhoids (Inactive) Surgical History History of appendectomy History of colonoscopy History of total right hip arthroplasty Family History Other No pertinent family history Social History Preferred Language: [place] Communication Ability: Effective Communication Tools: Other Operations Research Analyst Required: No Beliefs That Will Affect Care: None Current Living Situation: Spouse Feels Safe at Home: Yes Smoking Status: Never smoker Second Hand Exposure: No ; Hx Alcohol Use: Yes Alcohol type: wine Hx Substance Use: No Review of Systems See HPI for pertinent positives & negatives. and A total of 10 systems reviewed and were otherwise negative Physical Exam Vital Signs Vital Signs - 24 hr 02/01/19 19:16 02/01/19 19:20 02/01/19 19:21 Temperature Temperature Source Pulse Rate 97 H 98 H 99 H Pulse Rate from SpO2 Sensor 99 H 99 H 100 H Respiratory Rate 14 15 16 Respiratory Effort / Characteristics Respiratory Depth Respiratory Pattern Blood Pressure 133/70 135/72 Blood Pressure Mean 81 101 Pulse Oximetry 95 94 94 Oxygen Delivery Method Sepsis Recent Fever Within 48 Hours Sepsis New/Unexplained Change in Mental Status Sepsis Action Taken by Nursing 02/01/19 19:25 02/01/19 19:30 02/01/19 19:31 Temperature 36.9 C Temperature Source Oral Pulse Rate 99 H 101 H 101 H Pulse Rate from SpO2 Sensor 101 H 102 H Respiratory Rate 20 21 20 Respiratory Effort / Characteristics Non-Labored Spontaneous Respiratory Depth Normal Respiratory Pattern Regular Blood Pressure 133/70 148/75 H Blood Pressure Mean 91 104 Pulse Oximetry 95 94 95 Oxygen Delivery Method Room Air Sepsis Recent Fever Within 48 Hours No Sepsis New/Unexplained Change in Mental Status No Sepsis Action Taken by Nursing No Action Required 02/01/19 20:00 02/01/19 20:01 02/01/19 20:26 Temperature Temperature Source Pulse Rate 100 H 98 H 98 H Pulse Rate from SpO2 Sensor 98 H 102 H Respiratory Rate 22 21 20 Respiratory Effort / Characteristics Respiratory Depth Respiratory Pattern Blood Pressure 143/69 H Blood Pressure Mean 96 Pulse Oximetry 92 91 92 Oxygen Delivery Method Room Air Sepsis Recent Fever Within 48 Hours Sepsis New/Unexplained Change in Mental Status Sepsis Action Taken by Nursing 02/01/19 20:30 02/01/19 20:31 02/01/19 21:00 Temperature Temperature Source Pulse Rate 96 H 96 H 96 H Pulse Rate from SpO2 Sensor 96 H 96 H 96 H Respiratory Rate 22 21 23 Respiratory Effort / Characteristics Respiratory Depth Respiratory Pattern Blood Pressure 126/71 115/61 Blood Pressure Mean 93 74 Pulse Oximetry 92 93 93 Oxygen Delivery Method Sepsis Recent Fever Within 48 Hours Sepsis New/Unexplained Change in Mental Status Sepsis Action Taken by Nursing 02/01/19 21:01 02/01/19 21:30 02/01/19 21:31 Temperature Temperature Source Pulse Rate 95 H 94 H 95 H Pulse Rate from SpO2 Sensor 96 H 94 H 95 H Respiratory Rate 21 22 18 Respiratory Effort / Characteristics Respiratory Depth Respiratory Pattern Blood Pressure 129/70 Blood Pressure Mean 87 Pulse Oximetry 93 94 95 Oxygen Delivery Method Sepsis Recent Fever Within 48 Hours Sepsis New/Unexplained Change in Mental Status Sepsis Action Taken by Nursing 02/01/19 22:00 02/01/19 22:01 02/01/19 22:30 Temperature Temperature Source Pulse Rate 89 89 91 H Pulse Rate from SpO2 Sensor 90 89 91 H Respiratory Rate 18 13 19 Respiratory Effort / Characteristics Respiratory Depth Respiratory Pattern Blood Pressure 130/73 122/65 Blood Pressure Mean 78 75 Pulse Oximetry 96 97 95 Oxygen Delivery Method Sepsis Recent Fever Within 48 Hours Sepsis New/Unexplained Change in Mental Status Sepsis Action Taken by Nursing 02/01/19 22:31 Temperature Temperature Source Pulse Rate 91 H Pulse Rate from SpO2 Sensor 91 H Respiratory Rate 19 Respiratory Effort / Characteristics Respiratory Depth Respiratory Pattern Blood Pressure Blood Pressure Mean Pulse Oximetry 95 Oxygen Delivery Method Sepsis Recent Fever Within 48 Hours Sepsis New/Unexplained Change in Mental Status Sepsis Action Taken by Nursing GENERAL: disheveled, wearing hospital gown, cachetic, falls asleep quickly HEAD: normal cephalic EYE EXAM: normal conjunctiva, PERRL and EOM's grossly intact OROPHARYNX: no exudate, no erythema, lips, buccal mucosa, and tongue normal and mucous membranes are moist EARS: TMs clear b/l NECK: supple, no nuchal rigidity, no adenopathy, non-tender CHEST: stable to compression anteriorly and posteriorly LUNGS: clear to auscultation. Normal chest wall mechanics HEART: no murmurs, S1 normal and S2 normal ABDOMEN: abdomen soft, non-tender, normo-active bowel sounds, no masses, no rebound or guarding. PELVIS: stable to compression anteriorly and posteriorly BACK: Back is symmetrical on inspection and there is no deformity, no midline tenderness, no CVA tenderness. UPPER EXTREMITIES: full active and passive range of motion of all joints without tenderness to palpation LOWER EXTREMITIES: full active and passive range of motion of all joints without tenderness to palpation NEURO EXAM: Normal sensorium, cranial nerves II-XII intact, normal speech, no weakness of arms, no weakness of legs. No drift. Finger to nose intact. Gross sensation intact. GCS: 15. Course Course ED COURSE: Vital signs were reviewed and showed situational hypertension. The patients medical record was reviewed The above diagnostic studies were performed and reviewed. ED treatments and interventions as stated above. 1940: The patient was evaluated in room C07. A complete history and physical examination was performed. 2034: The patient refused the chest x-ray. 2099: Upon reevaluation, the patient is resting. I discussed my findings with the patient and her . They understand and agree with the treatment plan. Based on the patients age, coexisting illnesses, exam and lab findings the decision to treat as an inpatient was made. The patient remained stable while under my care. The patient will be evaluated for further management. Administered Medications Sodium Chloride (Nss 1000ml) 1,000 mls @ 80 mls/hr IV .[id number] [facility] Stop: 02/02/19 11:44 Last Admin: 02/01/19 23:31 Dose: 80 mls/hr Documented by: [id number] Discontinued Medications Sodium Chloride (Nss 1000ml) 1,000 mls @ 999 mls/hr IV .[id number] [facility] Stop: 02/01/19 21:00 Last Infusion: 02/01/19 21:50 Dose: 0 mls/hr Documented by: [id number] Admin: 02/01/19 20:41 Dose: 999 mls/hr Documented by: [id number] Medical Decision Making Differential Diagnosis Differential diagnoses include major intracranial, cervical, spinal, thoracic, abdominal, pelvic and neurologic injury. Fracture, contusion, sprain, strain, laceration, abrasions included as well. Medical Records Attestation: I reviewed the patient's medical records. Home Medications Current Medication List: was personally reviewed by me Laboratory Data Attestation: I reviewed the patient's lab results. Result diagrams: 02/01/19 20:18 02/01/19 20:18 Lab Results 02/01/19 02/01/19 02/01/19 Range/Units 20:18 20:18 20:18 WBC 7.13 (4.8-10.8) K/uL RBC 3.73 L (4.2-5.4) M/uL Hgb 10.8 L (12.0-16.0) g/dL Hct 32.4 L (37-47) % MCV 86.9 (80-100) fL MCH 29.0 (25-34) pg MCHC 33.3 (32-36) g/dL RDW Std Deviation 44.2 (36.4-46.3) fL RDW Coeff of Will 14.0 (11.5-14.5) % Plt Count 314 (130-400) K/uL MPV 7.8 (7.4-10.4) fL Immature Gran % (Auto) 0.7 % Neut % (Auto) 79.1 % Lymph % (Auto) 14.0 % [place] % (Auto) 5.8 % Eos % (Auto) 0.0 % Baso % (Auto) 0.4 % Immature Gran # (Auto) 0.05 H (0.00-0.02) K/uL Neut # (Auto) 5.64 (1.4-6.5) K/uL Lymph # (Auto) 1.00 L (1.2-3.4) K/uL [place] # (Auto) 0.41 (0.11-0.59) K/uL Eos # (Auto) 0.00 (0-0.5) K/uL Baso # (Auto) 0.03 (0-0.2) K/uL PT 11.4 (9.0-12.0) Seconds INR 1.1 (0.9-1.1) Sodium 131 L (136-145) mmol/L Potassium 3.5 (3.5-5.1) mmol/L Chloride 99 (98-107) mmol/L Carbon Dioxide 26 (21-32) mmol/L Anion Gap 6.0 (3-11) BUN 14 (7-18) mg/dl Creatinine 0.80 (0.6-1.2) mg/dl Est Cr Clr Drug Dosing 49.7 ml/min Est GFR ( Amer) 77.4 Est GFR (Non-Af Amer) 66.8 BUN/Creatinine Ratio 17.5 (10-20) Glucose 128 H (70-99) mg/dl Calcium 8.0 L (8.5-10.1) mg/dl Phosphorus 2.6 (2.5-4.9) mg/dl Magnesium 2.0 (1.8-2.4) mg/dl Total Bilirubin 0.6 (0.2-1) mg/dl AST 38 H (15-37) U/L ALT 33 (12-78) U/L Alkaline Phosphatase 123 H (45-117) U/L Troponin I < 0.015 (0-0.045) ng/ml Total Protein 6.9 (6.4-8.2) gm/dl Albumin 2.9 L (3.4-5.0) gm/dl Globulin 4.0 (2.5-4.0) gm/dl Albumin/Globulin Ratio 0.7 L (0.9-2) TSH 2.020 (0.300-4.500) uIu/ml Urine Color Urine Appearance (Clear) Urine pH (4.5-7.5) Ur Specific [place] (1.000-1.030) Urine Protein (Negative) Urine Glucose (UA) (Negative) Urine Ketones (Negative) Urine Blood (Negative) Urine Nitrite (Negative) Urine Bilirubin (Negative) Urine Urobilinogen (Negative) Ur Leukocyte Esterase (Negative) 02/01/19 Range/Units 21:25 WBC (4.8-10.8) K/uL RBC (4.2-5.4) M/uL Hgb (12.0-16.0) g/dL Hct (37-47) % MCV (80-100) fL MCH (25-34) pg MCHC (32-36) g/dL RDW Std Deviation (36.4-46.3) fL RDW Coeff of Will (11.5-14.5) % Plt Count (130-400) K/uL MPV (7.4-10.4) fL Immature Gran % (Auto) % Neut % (Auto) % Lymph % (Auto) % [place] % (Auto) % Eos % (Auto) % Baso % (Auto) % Immature Gran # (Auto) (0.00-0.02) K/uL Neut # (Auto) (1.4-6.5) K/uL Lymph # (Auto) (1.2-3.4) K/uL [place] # (Auto) (0.11-0.59) K/uL Eos # (Auto) (0-0.5) K/uL Baso # (Auto) (0-0.2) K/uL PT (9.0-12.0) Seconds INR (0.9-1.1) Sodium (136-145) mmol/L Potassium (3.5-5.1) mmol/L Chloride (98-107) mmol/L Carbon Dioxide (21-32) mmol/L Anion Gap (3-11) BUN (7-18) mg/dl Creatinine (0.6-1.2) mg/dl Est Cr Clr Drug Dosing ml/min Est GFR ( Amer) Est GFR (Non-Af Amer) BUN/Creatinine Ratio (10-20) Glucose (70-99) mg/dl Calcium (8.5-10.1) mg/dl Phosphorus (2.5-4.9) mg/dl Magnesium (1.8-2.4) mg/dl Total Bilirubin (0.2-1) mg/dl AST (15-37) U/L ALT (12-78) U/L Alkaline Phosphatase (45-117) U/L Troponin I (0-0.045) ng/ml Total Protein (6.4-8.2) gm/dl Albumin (3.4-5.0) gm/dl Globulin (2.5-4.0) gm/dl Albumin/Globulin Ratio (0.9-2) TSH (0.300-4.500) uIu/ml Urine Color Yellow Urine Appearance Clear (Clear) Urine pH 7.0 (4.5-7.5) Ur Specific [place] 1.015 (1.000-1.030) Urine Protein Negative (Negative) Urine Glucose (UA) Negative (Negative) Urine Ketones Negative (Negative) Urine Blood Negative (Negative) Urine Nitrite Negative (Negative) Urine Bilirubin Negative (Negative) Urine Urobilinogen Negative (Negative) Ur Leukocyte Esterase Negative (Negative) ECG Data Attestation: I personally reviewed and interpreted this ECG as follows: Rate (beats per minute): 99 Rhythm: + sinus rhythm ECG Intervals/blocks: + First degree AV block ECG [place]: + Normal ECG Findings: no PVCs Blood Pressure Blood Pressure Findings: Elevated blood pressure Blood Pressure Disposition: elevated BP felt to be situational MDM Narrative Patient is an 88-year-old female who presents the ER following a syncopal episode in which she passed out while walking to the bathroom. She is asymptomatic. and patient note this is happened 5 times before recently. Initially patient declined EKG but was eventually agreeable. IV was established blood work is obtained. Labs show a mild anemia at 10.8 thousand. No significant leukocytosis. Hemoglobin consistent with previous. INR unremarkable. BMP with mild hyponatremia. Bilirubin LFTs troponin and TSH was unremarkable. UA was negative. Recommend a chest x-ray which they declined. They did not want any additional imaging of the head which I did feel was reasonable as she was lowered to the ground. Patient family were updated at bedside. They are discussed with hospitalist for observation due to recurrent syncope. Impression & Plan Syncope, Weakness, Hyponatremia Discharge Plan Visit Data *Final* Discharge Date/Time: 02/01/19 22:51 Chief Complaint: Syncope (Near Syncope) Stated Complaint: SYNCOPE, FALL, NAUSEA, DIZZINESS ED Provider: Ryan Richardson Discharge Problem: Syncope, Weakness, Hyponatremia Patient Disposition: Admitted As Inpatient Discharge Instructions Interventions: ED Discharge Assessment Last Done: 02/01/19 22:51 Discharge Problem: Syncope Qualifiers: Syncope type: unspecified Qualified Code(s): R55 - Syncope and collapse The scribe's documentation has been prepared under my direction and personally reviewed by me in its entirety. I confirm that the note above accurately reflects all work, treatment, procedures, and medical decision making performed by me.
[2019-02-02] MEDS: ACETAMINOPHEN 500 MG TAB PO PRN ×3 (04:06→23:32)
[2019-02-02] MEDS: ACETAMINOPHEN 500 MG TAB PO SCH ×2 (08:50→20:05)
--- NOTE | 2019-02-02 10:25 | Hospitalist Progress Note ---
Date of Service February 02, 2019 Assessment & Plan (1) Fever: Patient has had intermittent fevers for 2-3 weeks. During a previous ER visit she had borderline fever, and she has had fever this admission. Previous blood cultures, CT chest/abd/pelvis, u/a -- all negative and w/o source for fever. Plan - * sent lyme's IgM/IgG - both returned positive (see below) * send blood cx's * start rocephin 2 gm daily for empiric coverage; this will also cover lyme disease * earlier today I checked RUQ u/s due to mildly abnormal LFTs - has gallstones, but no signs of cholecystitis * sed rate/crp checked as well Fevers/chills/anorexia/etc may be due to lyme disease. 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 Start rocephin 2gm IV daily. Western blot sent. Follow clinical response. Certainly her 2-3 weeks of illness may be 2nd to lyme disease. (3) Hyponatremia: Urine osm much higher than serum osm. Urine Na very high. 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 If SIADH likely due to recent SDH. Serum Na worsened with IV fluids overnight. Stop any IVF. Start NaCl tabs - 1gm BID. Repeat BMP am. Consider uric acid (would be low w/ SIADH). (4) Syncope: May be due to weakness in the setting of infectious process. Echo checked today - largely normal. Tele normal thus far. Hypokalemia can contribute to weakness. Doubt seizures from recent SDH. Observe. PT, OT. (5) Closed left radial fracture: nonoperative Rx. recently saw Dr Peter Castillo as outpatient. continue splint. (6) Subdural hematoma: Due to fall/trauma. Hospitalized earlier this month at [facility]. Nonoperative Rx. Consider repeat head CT to ensure SDH is not worsening. (7) Fracture of nasal bone: Nonoperative Rx. ENT consult note from [facility] - which is present in our EMR - was reviewed. Nothing to do at this time. (8) Hypokalemia: Replace. Repeat BMP am. (9) Chronic kidney disease, stage 3a: Cr at baseline. BMP am. (10) Abnormal LFTs: Cause uncertain. RUQ u/s negative for acute pathology. No cholecystitis. Repeat LFTs in 48 hours. (11) DVT prophylaxis: Chemical means contraindicated due to recent SDH. SCDs for now. updated at bedside. total time over multiple visits today, reviewing records from [facility], coordinating care, counseling, etc - 80 minutes Patient to be admitted in light of fevers, possible Lyme, etc I certify that the inpatient services were ordered in accordance with Medicare regulations governing the order. This includes certification that hospital inpatient services are reasonable and necessary and in the case of services not specified as inpatient-only under 42 CFR 419.22(n), that they are appropriately provided as inpatient services in accordance to with the 2-midnight benchmark under 43 CFR 412.3(e) Subjective patient reports intermittent subjective fevers, chills, poor appetite, weight loss, fatigue/weakness for 2-3 weeks. weight loss -- about 10-15 pounds over 6 weeks? she has good days interspersed with the days when the above symptoms occur. denies cough, congestion, abd pain, pain with eating food, dysuria, rashes, travel, sick contacts, nausea, emesis, headaches, myalgias, arthralgias or joint effusions. She lives in [place]; no obvious tick bites. But keeps an active lifestyle. After getting out of [facility] for her small SDH (managed nonoperatively) she had a few days of feeling well but now is feeling poorly again. She refused the labs I ordered this am because she thinks she feels worse after getting blood work. denies dizziness/lightheadedness today. no left arm pain (has splint on due to recent left radial fracture). Review of Systems Eyes: no worsening vision Ear, Nose, Mouth, Throat: no nasal congestion and no sore throat Respiratory: no dyspnea and no dyspnea on exertion Gastrointestinal: no abdominal pain Musculoskeletal: no back pain, no neck pain and no joint pain Integumentary: no rash Psychiatric: + anxiety Physical Exam Constitutional: + ill appearing, + thin and + frail appearing; no acute distress Eyes: PERRL; no scleral abnormality ENMT: external ear and nose normal, oropharynx normal Neck: trachea midline, no thyromegaly Respiratory: no respiratory distress Auscultation: + crackles (b/l bases); no wheezes Cardiovascular: Rate/Rhythm: regular rate and regular rhythm Heart Sounds: normal S1 and normal S2; no murmur Vessels: posterior tibial pulses present and dorsalis pedis pulses present; no JVD Extremities: no edema Gastrointestinal (Abdomen): normal bowel sounds, soft, nontender, no hepatosplenomegaly Musculoskeletal: no cyanosis or clubbing, extremities motor strength 5/5 no joint effusions any joint; left wrist in splint Skin: abrasions, healing, on bridge of nose Psychiatric: Orientation: alert and oriented x 3 Lymphatic: no cervical lymphadenopathy and no axillary lymphadenopathy Results & Data Vital Signs (Past 12 Hours) Vital Signs Temp Pulse Pulse Resp BP BP Pulse Ox 02/02/19 08:00 36.6 C 81 18 123/64 97 02/02/19 07:00 81 02/02/19 04:37 37.6 C H 02/02/19 03:53 38.4 C H 105 H 20 95 02/01/19 23:52 87 02/01/19 23:05 37 C 91 H 18 127/65 94 02/01/19 22:31 91 H 19 95 02/01/19 22:30 91 H 19 122/65 95 Laboratory Results Laboratory Results - last 24 hr 02/01/19 02/01/19 02/01/19 20:18 20:18 20:18 WBC 7.13 RBC 3.73 L Hgb 10.8 L Hct 32.4 L MCV 86.9 MCH 29.0 MCHC 33.3 RDW Std Deviation 44.2 RDW Coeff of Will 14.0 Plt Count 314 MPV 7.8 Immature Gran % (Auto) 0.7 Neut % (Auto) 79.1 Lymph % (Auto) 14.0 [place] % (Auto) 5.8 Eos % (Auto) 0.0 Baso % (Auto) 0.4 Immature Gran # (Auto) 0.05 H Neut # (Auto) 5.64 Lymph # (Auto) 1.00 L [place] # (Auto) 0.41 Eos # (Auto) 0.00 Baso # (Auto) 0.03 PT 11.4 INR 1.1 Sodium 131 L Potassium 3.5 Chloride 99 Carbon Dioxide 26 Anion Gap 6.0 BUN 14 Creatinine 0.80 Est Cr Clr Drug Dosing 49.7 Est GFR ( Amer) 77.4 Est GFR (Non-Af Amer) 66.8 BUN/Creatinine Ratio 17.5 Glucose 128 H Calcium 8.0 L Phosphorus 2.6 Magnesium 2.0 Total Bilirubin 0.6 AST 38 H ALT 33 Alkaline Phosphatase 123 H Troponin I < 0.015 Total Protein 6.9 Albumin 2.9 L Globulin 4.0 Albumin/Globulin Ratio 0.7 L TSH 2.020 Urine Color Urine Appearance Urine pH Ur Specific [place] Urine Protein Urine Glucose (UA) Urine Ketones Urine Blood Urine Nitrite Urine Bilirubin Urine Urobilinogen Ur Leukocyte Esterase 02/01/19 21:25 WBC RBC Hgb Hct MCV MCH MCHC RDW Std Deviation RDW Coeff of Will Plt Count MPV Immature Gran % (Auto) Neut % (Auto) Lymph % (Auto) [place] % (Auto) Eos % (Auto) Baso % (Auto) Immature Gran # (Auto) Neut # (Auto) Lymph # (Auto) [place] # (Auto) Eos # (Auto) Baso # (Auto) PT INR Sodium Potassium Chloride Carbon Dioxide Anion Gap BUN Creatinine Est Cr Clr Drug Dosing Est GFR ( Amer) Est GFR (Non-Af Amer) BUN/Creatinine Ratio Glucose Calcium Phosphorus Magnesium Total Bilirubin AST ALT Alkaline Phosphatase Troponin I Total Protein Albumin Globulin Albumin/Globulin Ratio TSH Urine Color Yellow Urine Appearance Clear Urine pH 7.0 Ur Specific [place] 1.015 Urine Protein Negative Urine Glucose (UA) Negative Urine Ketones Negative Urine Blood Negative Urine Nitrite Negative Urine Bilirubin Negative Urine Urobilinogen Negative Ur Leukocyte Esterase Negative PG Care Time/CCT Total # of Minutes Spent Total Time Spent with Patient: Total time spent is greater than 50% in coordination of care (as documented) at patient's floor/unit and/or counseling patient: Prolonged Care Time Prolonged Care Time: Yes 80 minutes (1) Closed left radial fracture Encounter type: subsequent encounter Radius location: distal Fracture morphology: other fracture Fracture healing: with routine healing Qualified Code(s): S52.592D - Other fractures of lower end of left radius, subsequent encounter for closed fracture with routine healing (2) Syncope Syncope type: unspecified Qualified Code(s): R55 - Syncope and collapse (3) Fracture of nasal bone Encounter type: initial encounter Fracture type: open Qualified Code(s): S02.2XXB - Fracture of nasal bones, initial encounter for open fracture (4) Fever Fever type: unspecified Qualified Code(s): R50.9 - Fever, unspecified
--- NOTE | 2019-02-02 12:43 | Ultrasound Report ---
US gallbladder CLINICAL HISTORY: 88 years-old Female presenting with abnormal LFTs, weight loss, eval liver/GB. TECHNIQUE: Real-time grayscale and limited color Doppler ultrasound imaging of the abdomen limited to the right upper quadrant was performed. COMPARISON: CT from 01/17/2019. FINDINGS: Pancreas: Visualized portions of the pancreatic head and body normal. Liver: Normal echogenicity and echotexture. No sonographic evidence of hepatic mass. Main portal vein patent with normal directional flow. Biliary: No intrahepatic biliary ductal dilatation. Common bile duct measures up to 5 mm in diameter. Gallbladder: Gallstones. Top normal thickness of the gallbladder wall. No evidence of gallbladder dis tention or pericholecystic fluid or inflammatory change. Right kidney: Normal in appearance without evidence of hydronephrosis. Ascites: None. Other: None. IMPRESSION: Cholelithiasis. No biliary ductal dilatation or convincing evidence of cholecystitis. ACT 112: Negative or not required by law. Electronically signed by: Gregorio Thacker M.D. 02/02/2019 12:42 PM
[2019-02-02 15:46] LABS: Basophils # (auto) 0.02 K/uL (0-0.2); Basophils % (auto) 0.3 %; Hematocrit (blood only) 30.9 % (37-47); Hemoglobin 10.3 g/dL (12.0-16.0); Immature Granulocytes # (auto) 0.05 K/uL (0.00-0.02); Immature Granulocytes % (auto) 0.7 %; Lymphocytes % (auto) 18.8 %; Mean Corpuscular Hemoglobin 28.5 pg (25-34); Mean Corpuscular Hgb Conc 33.3 g/dL (32-36); Mean Corpuscular Volume 85.6 fL (80-100); Mean Platelet Volume 8.2 fL (7.4-10.4); Monocytes # (auto) 0.39 K/uL (0.11-0.59); Monocytes % (auto) 5.6 %; Neutrophils # (auto) 5.15 K/uL (1.4-6.5); Neutrophils % (auto) 74.6 %; Platelet Count 264 K/uL (130-400); RDW Standard Deviation 43.6 fL (36.4-46.3); Red Blood Count 3.61 M/uL (4.2-5.4); White Blood Count 6.91 K/uL (4.8-10.8)
[2019-02-02 16:07] LABS: BUN Creatinine Ratio 15.5 (10-20); Calcium 8.1 mg/dl (8.5-10.1); Creatinine Clr Calc Pharmacy 52.7 ml/min; Est GFR (African American) 76.2; Est GFR (Non-African American) 65.8; Potassium 3.1 mmol/L (3.5-5.1)
[2019-02-02 16:10] LABS: C Reactive Protein 8.35 mg/dl (0-0.29)
[2019-02-02 17:34] LABS: Lyme Ab IgG w/WB Rflx Positive (Negative); Lyme Ab IgM w/WB Rflx Positive (Negative)
[2019-02-02] MEDS: cefTRIAXone SODIUM 2,000 MG in DEXTROSE 5% 50 ML IV SCH ×2 (17:47→18:13)
[2019-02-02] MEDS: POTASSIUM CHLORIDE 20 MEQ TABCR PO SCH ×2 (18:15→20:06)
[2019-02-02] MEDS: SODIUM CHLORIDE 1 GM TABLET PO SCH (20:04)
[2019-02-02] MEDS: TRAVOPROST Z 0.004% OPH SOLN 2.5 ML BTL OPB SCH (20:34)
[2019-02-03] MEDS: ACETAMINOPHEN 500 MG TAB PO PRN ×2 (05:33→15:38)
[2019-02-03 06:20] LABS: Hematocrit (blood only) 30.6 % (37-47); Hemoglobin 10.4 g/dL (12.0-16.0); Mean Corpuscular Hemoglobin 29.1 pg (25-34); Mean Corpuscular Volume 85.5 fL (80-100); Mean Platelet Volume 8.4 fL (7.4-10.4); Platelet Count 202 K/uL (130-400); RDW Standard Deviation 43.8 fL (36.4-46.3); Red Blood Count 3.58 M/uL (4.2-5.4); White Blood Count 5.67 K/uL (4.8-10.8)
[2019-02-03 06:40] LABS: Basophils # (auto) 0.02 K/uL (0-0.2); Basophils % (auto) 0.4 %; Echinocytes 1+; Immature Granulocytes # (auto) 0.04 K/uL (0.00-0.02); Immature Granulocytes % (auto) 0.7 %; Lymphocytes # (auto) 1.11 K/uL (1.2-3.4); Lymphocytes % (auto) 19.6 %; Monocytes # (auto) 0.32 K/uL (0.11-0.59); Monocytes % (auto) 5.6 %; Neutrophils # (auto) 4.18 K/uL (1.4-6.5); Neutrophils % (auto) 73.7 %
[2019-02-03 06:47] LABS: BUN Creatinine Ratio 16.6 (10-20); Calcium 8.5 mg/dl (8.5-10.1); Creatinine Clr Calc Pharmacy 54.9 ml/min; Est GFR (African American) 82.3; Potassium 3.4 mmol/L (3.5-5.1)
[2019-02-03] MEDS: POTASSIUM CHLORIDE 20 MEQ TABCR PO SCH ×3 (08:44→20:29)
[2019-02-03] MEDS: SODIUM CHLORIDE 1 GM TABLET PO SCH ×2 (08:45→20:29)
[2019-02-03] MEDS: ACETAMINOPHEN 500 MG TAB PO SCH ×2 (08:45→20:28)
--- NOTE | 2019-02-03 16:02 | Hospitalist Progress Note ---
Date of Service February 03, 2019 Assessment & Plan (1) Fever: Patient has had intermittent fevers for 2-3 weeks. Previous blood cultures, CT chest/abd/pelvis, u/a -- all negative and w/o source for fever. Lyme IgM/IgG both positive suggesting early stage Lyme OR early disseminated Lyme. Blood cx's thus far negative. RUQ u/s w/ gallstones but no cholecystitis. At this time suspect fever/chills/etc are due to Lyme Disease. Cont rocephin for Lyme. Added doxy to cover for other tick-borne disease. Doxy will also cover Lyme but given the severity of her illness will leave rocephin for now. Ultimately we can likely just use monotherapy with doxy BID. Send anaplasmosis and ehrlichia DNA to r/o co-infection. Supportive care. 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 Started rocephin 2gm IV daily on 02/02/19. Western blot sent. Certainly her 2-3 weeks of illness may be 2nd to lyme disease. Cannot rule out that the Lyme is early disseminated ([employer] lyme) given her recent syncope, dizziness, other neuro symptoms. Consider ID consultation. Added doxy to cover other tick-born diseases (anaplasmosis, ehrlichia) as rocephin will only cover Lyme. (3) Hyponatremia: Urine osm much higher than serum osm. Urine Na very high. 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 Most obvious reason for SIADH would be the recent SDH. Cannot rule out tick-borne disease contributing to SIADH. Started NaCl tabs 02/02/19 - 1gm BID. Repeat BMP am. na is 131 and stable. (4) Syncope: May be due to weakness in the setting of infectious process (tick-borne disease). Echo was normal. Tele normal. Hypokalemia can contribute to weakness. Doubt seizures from recent SDH. Observe. PT, OT. (5) Closed left radial fracture: nonoperative Rx. recently saw Dr Peter Castillo as outpatient. continue splint. (6) Subdural hematoma: Due to fall/trauma. Hospitalized earlier this month at [facility]. Nonoperative Rx at [facility]. Recheck CT head to r/o worsening of SDH. (7) Fracture of nasal bone: Nonoperative Rx. ENT consult note from [facility] - which is present in our EMR - was reviewed. Nothing to do at this time. (8) Hypokalemia: Improving but still low. Cont to replace. Repeat BMP am. (9) Chronic kidney disease, stage 3a: Cr at baseline today. Repeat BMP am. (10) Abnormal LFTs: Cause uncertain. RUQ u/s negative for acute pathology. No cholecystitis. Repeat LFTs tomorrow. Could the increase be due to tick-borne disease? (anaplasmosis?) (11) DVT prophylaxis: Chemical means contraindicated due to recent SDH. SCDs for now. updated at bedside once again today. PT, OT evals requested. Subjective patient had fever again overnight. this am she is feeling ok however. ate fair breakfast. still very tired. no new symptoms since yesterday. tele with [facility]. Review of Systems Constitutional: + fever, + chills, + fatigue and + weakness Respiratory: no cough and no dyspnea Cardiovascular: no chest pain, no orthopnea and no edema Gastrointestinal: no abdominal pain, no nausea and no vomiting Musculoskeletal: no joint pain Integumentary: no rash Physical Exam Constitutional: + ill appearing, + thin and + frail appearing; no acute distress looks similar to yesterday ENMT: external ear and nose normal, oropharynx normal Neck: trachea midline, no thyromegaly Respiratory: no respiratory distress Auscultation: + crackles (right base only; fine, "dry"); no wheezes Cardiovascular: Rate/Rhythm: regular rate and regular rhythm Heart Sounds: normal S1 and normal S2; no murmur Vessels: posterior tibial pulses present and dorsalis pedis pulses present; no JVD Extremities: no edema Gastrointestinal (Abdomen): normal bowel sounds, soft, nontender, no hepatosplenomegaly Skin: no rashes, warm and dry Psychiatric: Orientation: alert and oriented x 3 Results & Data Vital Signs (Past 12 Hours) Vital Signs Temp Pulse Pulse Resp BP Pulse Ox 02/03/19 15:19 39.4 C H 112 H 34 H 118/64 90 02/03/19 11:16 37.4 C 88 20 112/64 94 02/03/19 07:53 37.4 C 02/03/19 07:21 37.7 C H 95 H 20 118/62 93 02/03/19 07:00 105 H 02/03/19 04:38 38.2 C H 97 H 17 144/70 H 94 Laboratory Results Laboratory Results - last 24 hr 02/02/19 02/02/19 02/02/19 15:24 15:24 15:24 WBC RBC Hgb Hct MCV MCH MCHC RDW Std Deviation RDW Coeff of Will Plt Count MPV Immature Gran % (Auto) Neut % (Auto) Lymph % (Auto) Atkinson % (Auto) Eos % (Auto) Baso % (Auto) Immature Gran # (Auto) Neut # (Auto) Lymph # (Auto) Atkinson # (Auto) Eos # (Auto) Baso # (Auto) Echinocytes Sodium 129 L Potassium 3.1 L Chloride 99 Carbon Dioxide 27 Anion Gap 3.0 BUN 13 Creatinine 0.81 Est Cr Clr Drug Dosing 52.7 Est GFR ( Amer) 76.2 Est GFR (Non-Af Amer) 65.8 BUN/Creatinine Ratio 15.5 Glucose 113 H Calcium 8.1 L Total Creatine Kinase 77 C-Reactive Protein 8.35 H Random Cortisol 28.05 Urine Osmolality Ur Random Sodium Lyme Disease IgG Ab Positive A Lyme IgG (Western Blot) Lyme IgG 18 kDa Band Lyme IgG 23 kDa Band Lyme IgG 28 kDa Band Lyme IgG 30 kDa Band Lyme IgG 39 kDa Band Lyme IgG 41 kDa Band Lyme IgG 45 kDa Band Lyme IgG 58 kDa Band Lyme IgG 66 kDa Band Lyme IgG 93 kDa Band Lyme Disease IgM Ab Positive A Lyme IgM (Western Blot) Lyme IgM 23 kDa Band Lyme IgM 39 kDa Band Lyme IgM 41 kDa Band 02/02/19 02/02/19 02/02/19 15:24 17:17 17:17 WBC RBC Hgb Hct MCV MCH MCHC RDW Std Deviation RDW Coeff of Will Plt Count MPV Immature Gran % (Auto) Neut % (Auto) Lymph % (Auto) Atkinson % (Auto) Eos % (Auto) Baso % (Auto) Immature Gran # (Auto) Neut # (Auto) Lymph # (Auto) Atkinson # (Auto) Eos # (Auto) Baso # (Auto) Echinocytes Sodium Potassium Chloride Carbon Dioxide Anion Gap BUN Creatinine Est Cr Clr Drug Dosing Est GFR ( Amer) Est GFR (Non-Af Amer) BUN/Creatinine Ratio Glucose Calcium Total Creatine Kinase C-Reactive Protein Random Cortisol Urine Osmolality 560 Ur Random Sodium 148 Lyme Disease IgG Ab Lyme IgG (Western Blot) Pending Lyme IgG 18 kDa Band Pending Lyme IgG 23 kDa Band Pending Lyme IgG 28 kDa Band Pending Lyme IgG 30 kDa Band Pending Lyme IgG 39 kDa Band Pending Lyme IgG 41 kDa Band Pending Lyme IgG 45 kDa Band Pending Lyme IgG 58 kDa Band Pending Lyme IgG 66 kDa Band Pending Lyme IgG 93 kDa Band Pending Lyme Disease IgM Ab Lyme IgM (Western Blot) Pending Lyme IgM 23 kDa Band Pending Lyme IgM 39 kDa Band Pending Lyme IgM 41 kDa Band Pending 02/03/19 02/03/19 06:04 06:04 WBC 5.67 RBC 3.58 L Hgb 10.4 L Hct 30.6 L MCV 85.5 MCH 29.1 MCHC 34.0 RDW Std Deviation 43.8 RDW Coeff of Will 14.0 Plt Count 202 MPV 8.4 Immature Gran % (Auto) 0.7 Neut % (Auto) 73.7 Lymph % (Auto) 19.6 Atkinson % (Auto) 5.6 Eos % (Auto) 0.0 Baso % (Auto) 0.4 Immature Gran # (Auto) 0.04 H Neut # (Auto) 4.18 Lymph # (Auto) 1.11 L Atkinson # (Auto) 0.32 Eos # (Auto) 0.00 Baso # (Auto) 0.02 Echinocytes 1+ Sodium 131 L Potassium 3.4 L Chloride 97 L Carbon Dioxide 26 Anion Gap 7.0 BUN 13 Creatinine 0.76 Est Cr Clr Drug Dosing 54.9 Est GFR ( Amer) 82.3 Est GFR (Non-Af Amer) 71.0 BUN/Creatinine Ratio 16.6 Glucose 109 H Calcium 8.5 Total Creatine Kinase C-Reactive Protein Random Cortisol Urine Osmolality Ur Random Sodium Lyme Disease IgG Ab Lyme IgG (Western Blot) Lyme IgG 18 kDa Band Lyme IgG 23 kDa Band Lyme IgG 28 kDa Band Lyme IgG 30 kDa Band Lyme IgG 39 kDa Band Lyme IgG 41 kDa Band Lyme IgG 45 kDa Band Lyme IgG 58 kDa Band Lyme IgG 66 kDa Band Lyme IgG 93 kDa Band Lyme Disease IgM Ab Lyme IgM (Western Blot) Lyme IgM 23 kDa Band Lyme IgM 39 kDa Band Lyme IgM 41 kDa Band Diagnostic Findings blood cx's negative PG Care Time/CCT Total # of Minutes Spent Total Time Spent with Patient: Total time spent is greater than 50% in coordination of care (as documented) at patient's floor/unit and/or counseling patient: (1) Fever Fever type: unspecified Qualified Code(s): R50.9 - Fever, unspecified (2) Syncope Syncope type: unspecified Qualified Code(s): R55 - Syncope and collapse (3) Closed left radial fracture Encounter type: subsequent encounter Radius location: distal Fracture morphology: other fracture Fracture healing: with routine healing Qualified Code(s): S52.592D - Other fractures of lower end of left radius, subsequent encounter for closed fracture with routine healing (4) Fracture of nasal bone Encounter type: initial encounter Fracture type: open Qualified Code(s): S02.2XXB - Fracture of nasal bones, initial encounter for open fracture
[2019-02-03] MEDS: DOXYCYCLINE HYCLATE 100 MG CAP PO SCH ×2 (16:09→20:28)
[2019-02-03] MEDS: cefTRIAXone SODIUM 2,000 MG in DEXTROSE 5% 50 ML IV SCH (17:37)
[2019-02-03] MEDS: TRAVOPROST Z 0.004% OPH SOLN 2.5 ML BTL OPB SCH (20:29)
[2019-02-04 06:55] LABS: Albumin Level 2.2 gm/dl (3.4-5.0); BUN Creatinine Ratio 20.5 (10-20); Calcium 8.2 mg/dl (8.5-10.1); Creatinine Clr Calc Pharmacy 47.4 ml/min; Est GFR (Non-African American) 58.7; Potassium 3.8 mmol/L (3.5-5.1)
[2019-02-04 06:58] LABS: Albumin Globulin Ratio 0.5 (0.9-2); Bilirubin,Total 0.5 mg/dl (0.2-1); Globulin 4.1 gm/dl (2.5-4.0); Total Protein 6.3 gm/dl (6.4-8.2)
[2019-02-04] MEDS: DOXYCYCLINE HYCLATE 100 MG CAP PO SCH ×2 (08:33→20:27)
[2019-02-04] MEDS: SODIUM CHLORIDE 1 GM TABLET PO SCH (08:33)
[2019-02-04] MEDS: ACETAMINOPHEN 500 MG TAB PO SCH ×2 (08:35→20:27)
[2019-02-04] MEDS: POTASSIUM CHLORIDE 20 MEQ TABCR PO SCH ×3 (09:46→20:27)
--- NOTE | 2019-02-04 15:35 | Hospitalist Progress Note ---
Date of Service February 04, 2019 Assessment & Plan (1) Fever: Patient has had intermittent fevers for 2-3 weeks. Previous blood cultures, CT chest/abd/pelvis, u/a -- all negative and w/o source for fever. Lyme IgM/IgG both positive suggesting early stage Lyme OR early disseminated Lyme. Blood cx's continue to be negative RUQ u/s w/ gallstones but no cholecystitis. At this time suspect fever/chills/etc are due to Lyme Disease. Cont rocephin for Lyme. Added doxy to cover for other tick-borne disease. Doxy will also cover Lyme but given the severity of her illness will leave rocephin for now. Send anaplasmosis and ehrlichia DNA to r/o co-infection. results still pending Supportive care. last fever was 02/03 in the evening around 1900 no fever today if she remains afebrile through tomorrow morning, would recommend d/c home on Doxy 100mg BID would put on 14-21 day course, follow up with PCP and would recommend ID consult/referral as outpatient (2) Positive Lyme disease serology: IgM and IgG both positive. Started rocephin 2gm IV daily on 02/02/19. Western blot sent. Certainly her 2-3 weeks of illness may be 2nd to lyme disease. Cannot rule out that the Lyme is early disseminated ([employer] lyme) given her recent syncope, dizziness, other neuro symptoms. Consider ID consultation. Added doxy to cover other tick-born diseases (anaplasmosis, ehrlichia) as rocephin will only cover Lyme. see above, if no fever in 24 hours then d/c home tomorrow (3) Hyponatremia: Urine osm much higher than serum osm when tested Urine Na very high. 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 Most obvious reason for SIADH would be the recent Sub dural hematoma Started NaCl tabs 02/02/19 - 1gm BID. Repeat BMP am. na is 133 and stable would decrease NaCl to once a day on discharge, lighten up fluid restriction as Na was not that low on admission (4) Syncope: May be due to weakness in the setting of infectious process (tick-borne disease). Echo was normal. Tele normal. Hypokalemia can contribute to weakness. Doubt seizures from recent SDH. Observe. PT, OT. try for discharge to home tomorrow (5) Closed left radial fracture: nonoperative Rx. recently saw Dr Peter Castillo as outpatient. continue splint. (6) Subdural hematoma: Due to fall/trauma. Hospitalized earlier this month at [facility]. Nonoperative Rx at [facility]. (7) Fracture of nasal bone: Nonoperative Rx. ENT consult note from [facility] - which is present in our EMR - was reviewed. Nothing to do at this time. (8) Hypokalemia: 3.8 today continue supplementation. (9) Chronic kidney disease, stage 3a: Cr at baseline today. making adequate urine (10) Abnormal LFTs: Cause uncertain. RUQ u/s negative for acute pathology. No cholecystitis. Could the increase be due to tick-borne disease? (anaplasmosis?) minimally elevated and stable (11) DVT prophylaxis: Chemical means contraindicated due to recent SDH. SCDs for now. plan for d/c to home tomorrow if no fever Subjective patient laying in bed says she feels overall better, just continues to have weakness discussed the diagnosis of Lyme disease, hoping for no fevers today discussed that if she is fever free through tomorrow AM would discharge home she c/o her diet, wants to eat more reviewed her labs, Na is 133, K 3.8 and Cr stable 0.89 anaplasmosis and Erlichia still pending Review of Systems Review of Systems: All systems reviewed & are unremarkable except as noted in HPI & below Constitutional: + fever (last night), + fatigue and + weakness Respiratory: no cough and no dyspnea Cardiovascular: no chest pain Gastrointestinal: no abdominal pain, no nausea, no vomiting, no constipation and no diarrhea/loose stools Physical Exam Constitutional: WD/WN, vitals as above Eyes: PERRL, conjunctivae normal, anicteric sclerae ENMT: external ear and nose normal, oropharynx normal Neck: trachea midline, no thyromegaly Respiratory: normal respiratory effort, lungs clear to auscultation Cardiovascular: RRR, no murmur, no edema Gastrointestinal (Abdomen): normal bowel sounds, soft, nontender, no hepatosplenomegaly Musculoskeletal: no cyanosis or clubbing, extremities motor strength 5/5 Skin: no rashes, warm and dry Neurologic: patellar DTR's 2+ bilat, sensation intact and PERRL, EOMI, accommodation nl, no face palsy, no dysarthria Psychiatric: A+Ox3, euthymic affect Lymphatic: no cervical or axillary lymphadenopathy Results & Data Vital Signs (Past 12 Hours) Vital Signs Temp Pulse Pulse Resp BP Pulse Ox 02/04/19 11:35 37.1 C 86 20 105/64 97 02/04/19 10:27 81 02/04/19 07:18 36.8 C 79 20 108/64 96 02/04/19 03:36 36.8 C 78 20 106/61 96 Laboratory Results Laboratory Results - last 24 hr 02/04/19 02/04/19 05:48 05:48 Sodium 133 L Potassium 3.8 Chloride 101 Carbon Dioxide 26 Anion Gap 6.0 BUN 18 Creatinine 0.89 Est Cr Clr Drug Dosing 47.4 Est GFR ( Amer) 68.0 Est GFR (Non-Af Amer) 58.7 BUN/Creatinine Ratio 20.5 H Glucose 101 H Calcium 8.2 L Total Bilirubin 0.5 AST 47 H ALT 43 Alkaline Phosphatase 124 H Total Protein 6.3 L Albumin 2.2 L Globulin 4.1 H Albumin/Globulin Ratio 0.5 L A. phagocytophilum DNA Pending E.chaffeensis DNA (PCR) Pending Medications Administered Current Inpatient Medications Acetaminophen (Tylenol) 500 mg PO BID [facility] Stop: 03/04/19 08:59 Last Admin: 02/04/19 08:35 Dose: Not Given Documented by: Acetaminophen (Tylenol) 500 mg PO Q6H PRN PRN Reason: pain/fever Stop: 03/04/19 03:54 Last Admin: 02/03/19 15:38 Dose: 500 mg Documented by: Docusate Sodium (Colace) 100 mg PO BID PRN PRN Reason: Constipation Stop: 03/03/19 23:14 Doxycycline Hyclate (Vibramycin) 100 mg PO BID [facility] Stop: 02/13/19 15:09 Last Admin: 02/04/19 08:33 Dose: 100 mg Documented by: Ceftriaxone Sodium 2,000 mg/ (Dextrose) 70 mls @ 100 mls/hr IV DAILY@1800 [facility]; Protocol Stop: 02/04/19 17:59 Last Infusion: 02/03/19 18:37 Dose: Infused Documented by: Polyethylene Glycol (Miralax Powder Packet) 17 gm PO DAILY PRN PRN Reason: Constipation Stop: 03/03/19 23:14 Potassium Chloride (Klor-Con M20) 20 meq PO TID [facility] Stop: 03/04/19 17:14 Last Admin: 02/04/19 14:43 Dose: 20 meq Documented by: Sodium Chloride (Sodium Chloride) 1 gm PO BID [facility] Stop: 03/04/19 20:59 Last Admin: 02/04/19 08:33 Dose: 1 gm Documented by: Zolpidem Tartrate (Ambien) 2.5 mg PO HS PRN PRN Reason: Sleep Stop: 03/03/19 23:14 PG Care Time/CCT Total # of Minutes Spent Total Time Spent with Patient: Total time spent is greater than 50% in coordination of care (as documented) at patient's floor/unit and/or counseling patient: (1) Fracture of nasal bone Encounter type: initial encounter Fracture type: open Qualified Code(s): S02.2XXB - Fracture of nasal bones, initial encounter for open fracture (2) Fever Fever type: unspecified Qualified Code(s): R50.9 - Fever, unspecified (3) Syncope Syncope type: unspecified Qualified Code(s): R55 - Syncope and collapse (4) Closed left radial fracture Encounter type: subsequent encounter Fracture healing: with routine healing Fracture morphology: other fracture Radius location: distal Qualified Code(s): S52.592D - Other fractures of lower end of left radius, subsequent encounter for closed fracture with routine healing
[2019-02-04] MEDS: TRAVOPROST Z 0.004% OPH SOLN 2.5 ML BTL OPB SCH (20:27)
[2019-02-05] MEDS: POTASSIUM CHLORIDE 20 MEQ TABCR PO SCH (07:59)
[2019-02-05] MEDS: DOXYCYCLINE HYCLATE 100 MG CAP PO SCH (07:59)
[2019-02-05] MEDS: ACETAMINOPHEN 500 MG TAB PO SCH (07:59)
[2019-02-05] MEDS ORDERED: SODIUM CHLORIDE 1 GM TABLET PO SCH (09:00)
[2019-02-06 19:21] LABS: Ehrlichia chaff DNA Bld Not Detected (Not Detected)
[2019-02-07 16:12] LABS: 18KDIGG Band REACTIVE; 23KDIGG Band NON-REACTIVE; 23KDIGM Band NON-REACTIVE; 28KDIGG Band NON-REACTIVE; 30KDIGG Band NON-REACTIVE; 39KDIGG Band NON-REACTIVE; 39KDIGM Band NON-REACTIVE; 41KDIGG Band REACTIVE; 41KDIGM Band REACTIVE; 45KDIGG Band REACTIVE; 58KDIGG Band REACTIVE; 66KDIGG Band REACTIVE; 93KDIGG Band NON-REACTIVE; Lyme Antibodies, WB IgG POSITIVE (NEGATIVE); Lyme Antibodies, WB IgM NEGATIVE (NEGATIVE)
== END 2019-02-05 13:14 | disposition home or self-care (01) | DRG 867 ==
LOC: ED 19:13 → 2N 19:13 → SUATTDRO 22:33 → 2N 22:51 → SUATTDRO 02-02 16:05